=== PATIENT | female | born 1970 | race Caucasian/White ===

== ENCOUNTER 2017-10-14 21:35 | Observation (INO) | payer MEDICAID ==
[~2017-10-14] VITALS: Ht 160 cm; Wt 120.3 kg
[~2017-10-14 21:35] MED LIST: ALLO100T PO; AMIT10TA6 PO; AMOX-355 PO; ATOR10TA66 PO; BACL10TA; BENZ200C51 PO; CEFA500C8 PO; CEPH-507 PO; CEPH500C PO; CHLO25TA22 PO; COLC0.6C3 PO; COLC0.6T53 PO; DIVA125T2 PO; DIVA500T PO; HYDR-3820 PO; HYOS0.1283 SL; INDO50SU2 RC; LORA10CA PO; MORP30CA16 PO; OMEG500C PO; OMEP20CA6 PO; OMEP20TA7 PO; ONDA4TAB11 PO; ONDA4TAB8 PO; ONDA8TAB13 PO; PHEN-639 PO; POTA15TA PO; PRD20T PO; RIZA5TAB32 PO; TERA5CAP3 PO; TRIM100T PO; TRIM300C23 PO; VENL75CA PO; lidoderm 5% patch TP
[2017-10-14] MEDS ORDERED: methylPREDNISolone 125 MG (Solu-MEDROL) VIAL IV STA (22:05)
[2017-10-14] MEDS ORDERED: DEXAMETHASONE 4 MG/ML SDV (DECADRON) IH ONE (22:15)
[2017-10-14] MEDS ORDERED: RT-ALBUTEROL/IPRATROPIUM 3 ML (DUONEB) VIAL INH ONE ×2 (22:15→23:15)
[2017-10-14] MEDS ORDERED: ALBU6.7H8 INH (22:32)
[2017-10-14] MEDS ORDERED: AZIT250T12 PO (22:32)
[2017-10-14 22:44] LABS: BASOPHILS # (AUTO) 0.1 10^3/uL (0.0-0.1); BASOPHILS % (AUTO) 1 % (0-10); EOSINOPHILS % (AUTO) 6 % (0-10); HEMATOCRIT 44 % (35-52); HEMOGLOBIN 14.4 G/DL (11.5-16.0); LYMPHOCYTES # (AUTO) 5.1 X 10^3 (1.0-4.0); LYMPHOCYTES % (AUTO) 34 % (12-44); MEAN CORPUSCULAR HEMOGLOBIN 30 PG (25-34); MEAN CORPUSCULAR HGB CONC 33 G/DL (32-36); MEAN CORPUSCULAR VOLUME 90 FL (80-99); MEAN PLATELET VOLUME 9.2 FL (7.4-10.4); MONOCYTES # (AUTO) 1.2 X 10^3 (0.0-1.0); MONOCYTES % (AUTO) 8 % (0-12); NEUTROPHILS # (AUTO) 7.9 X 10^3 (1.8-7.8); NEUTROPHILS % (AUTO) 52 % (42-75); PLATELET COUNT 324 10^3/uL (130-400); RED BLOOD COUNT 4.86 10^6/uL (4.35-5.85); RED CELL DISTRIBUTION WIDTH 13.6 % (10.0-14.5); WHITE BLOOD COUNT 15.2 10^3/uL (4.3-11.0)
[2017-10-14 22:46] LABS: INR 0.9 (0.8-1.4); PROTHROMBIN TIME PATIENT 11.8 SEC (12.2-14.7)
[2017-10-14] MEDS ORDERED: RT-ALBUTEROL SULF 2.5 MG/3 ML PRE-MIX VIAL ONE (22:48)
[2017-10-14 22:49] LABS: BILIRUBIN,URINE NEGATIVE (NEGATIVE); CLARITY,URINE CLEAR; COLOR,URINE YELLOW; GLUCOSE, URINE (UA) NEGATIVE (NEGATIVE); KETONES,URINE NEGATIVE (NEGATIVE); LEUKOCYTE ESTERASE ,URINE NEGATIVE (NEGATIVE); NITRITE,URINE NEGATIVE (NEGATIVE); PH,URINE 6 (5-9); PROTEIN,URINE NEGATIVE (NEGATIVE); UROBILINOGEN,URINE NORMAL (NORMAL)
[2017-10-14 22:56] LABS: ALANINE AMINOTRANSFERASE 23 U/L (0-55); ALBUMIN 3.7 GM/DL (3.2-4.5); ALKALINE PHOSPHATASE 82 U/L (40-136); BILIRUBIN,TOTAL 0.2 MG/DL (0.1-1.0); BUN/CREATININE RATIO 18; CALCIUM 8.8 MG/DL (8.5-10.1); CARBON DIOXIDE 21 MMOL/L (21-32); CHLORIDE 107 MMOL/L (98-107); CREATININE SERUM 0.82 MG/DL (0.60-1.30); GFR ESTIMATED > 60; GLUCOSE 120 MG/DL (70-105); MAGNESIUM 1.9 MG/DL (1.8-2.4); POTASSIUM 4.3 MMOL/L (3.6-5.0); SODIUM 140 MMOL/L (135-145)
[2017-10-14 23:05] LABS: AMPHETAMINE SCREEN, URINE NEGATIVE (NEGATIVE); BARBITURATE SCREEN URINE NEGATIVE (NEGATIVE); BENZODIAZEPINES SCREEN URINE NEGATIVE (NEGATIVE); CANNABINOID SCREEN, URINE NEGATIVE (NEGATIVE); COCAINE SCREEN URINE NEGATIVE (NEGATIVE); METHADONE STAT NEGATIVE (NEGATIVE); METHAMPHETAMINE SCREEN URINE S NEGATIVE (NEGATIVE); OPIATE SCREEN URINE NEGATIVE (NEGATIVE); OXYCODONE STAT NEGATIVE (NEGATIVE); PROPOXYPHENE STAT NEGATIVE (NEGATIVE); TRICYCLIC ANTIDEPRESSANTS SCRE NEGATIVE (NEGATIVE)
[2017-10-14] MEDS ORDERED: RT-ALBUTEROL SULF 2.5 MG/3 ML PRE-MIX VIAL INH STA (23:06)
[2017-10-14 23:09] LABS: BAND NEUTROPHILS 0 %; BASOPHILS % (MANUAL) 0 %; EOSINOPHILS % (MANUAL) 9 %; LYMPHOCYTES % (MANUAL) 44 %; MONOCYTES % (MANUAL) 2 %; NEUTROPHILS % (MANUAL) 45 %; RBC MORPH NORMAL
[2017-10-14 23:12] LABS: BACTERIA,URINE NEGATIVE /HPF; RBC,URINE 0-2 /HPF; WBC,URINE RARE /HPF
[2017-10-14] MEDS ORDERED: cefTRIAXone INJECTION 1,000 MG in NS (IVPB) 50 ML IV ONE (23:30)
[2017-10-15] MEDS ORDERED: KETOROLAC 30 MG/ML VIAL IVP ONE (00:15)
[2017-10-15] MEDS ORDERED: ACETAMINOPHEN 500 MG TAB (TYLENOL) PO ONE (00:15)
[2017-10-15 01:20] VITALS: BP 134/91
[2017-10-15 01:51] VITALS: BP 134/91
[2017-10-15] MEDS ORDERED: RT-ALBUTEROL/IPRATROPIUM 3 ML (DUONEB) VIAL INH PRN (02:00)
[2017-10-15] MEDS ORDERED: RT-ALBUTEROL/IPRATROPIUM 3 ML (DUONEB) VIAL ONE (02:26)
[2017-10-15] MEDS ORDERED: RT-ALBUTEROL/IPRATROPIUM 3 ML (DUONEB) VIAL INH SCH (03:00)
[2017-10-15] MEDS ORDERED: CATHETER FLUSH 10 ML SYR IV PRN (03:15)
[2017-10-15] MEDS ORDERED: KETOROLAC 30 MG/ML VIAL IV PRN (03:15)
[2017-10-15] MEDS ORDERED: DOXYCYCLINE INJECTION 100 MG in NS (IVPB) 100 ML IV SCH (03:15)
[2017-10-15] MEDS ORDERED: ONDANSETRON 4 MG/2 ML (SDV) Z0FRAN IV PRN (03:15)
[2017-10-15] MEDS ORDERED: ACETAMINOPHEN 500 MG TAB (TYLENOL) PO PRN (03:15)
[2017-10-15 04:00] VITALS: BP 137/71
--- NOTE | 2017-10-15 04:15 | ED Respiratory ---
General Chief Complaint: Respiratory Problems Stated Complaint: PNEUMONIA Nursing Triage Note: REPORTS SOA, DX PNEUMONIA YESTERDAY AT [facility]. PT IS ON DAY 2. LAST WEEK PT TOOK STEROIDS LAST WK Source: patient History of Present Illness Date Seen by Provider: October 14, 2017 Time Seen by Provider: 21:57 Initial Comments PT ARRIVES VIA POV STATES SHE HAS BEEN SICK FOR A WEEK WITH PRODUCTIVE COUGH--YELLOW SPUTUM, CHEST CONGESTION, WHEEZING/SHORTNESS OF BREATH WAS SEEN AT [facility] LAST WEEK AND GIVEN RX FOR STEROIDS AND IT HELPED, THEN SYMPTOMS BEGAN TO RETURN PT WAS ALSO GIVEN ALBUTEROL INHALER LAST WEEK --NO SPACER. STATES IT MAKES HER GAG AND COUGH AND "GO INTO A SPASTIC FIT" --LAST USED IT 30 MINUTES PRIOR TO ARRIVAL--NO RELIEFL WAS SEEN AGAIN YESTERDAY AT [facility]. STATES SHE HAD A CXR AND WAS DIAGNOSED WITH PNEUMONIA-NO LAB DONE. WAS GIVEN RX FOR ZITHROMAX AND WAS GIVEN A NEB TREATMENT IN CLINIC YESTERDAY. HAS NOT TAKEN ANYTHING FOR COUGH NO FEVER AT ANY TIME NO CHEST PAIN PT SMOKES 1 PPD, AND HAS USED THC AND METH IN THE PAST. PT IS CURRENTLY LIVING IN THE SAFE HOUSE--STATES "EVERYBODY'S ALWAYS SICK" THERE PCP: [facility] Allergies and Home Medications Allergies Coded Allergies: Sulfa (Sulfonamide Antibiotics) (Unverified Allergy, Unknown, 01/06/15) ciprofloxacin (Unverified Allergy, Unknown, 01/06/15) phenobarbital (Unverified Allergy, Unknown, 01/06/15) Home Medications Allopurinol 100 Mg Tablet, 150 MG PO BID, (Reported) Amitriptyline HCl 10 Mg Tablet, 10 MG PO HS PRN for INSOMNIA, (Reported) Atorvastatin Calcium 10 Mg Tablet, 10 MG PO DAILY, (Reported) Colchicine 0.6 Mg Capsule, 0.6 MG PO BID, (Reported) Divalproex Sodium 500 Mg Tablet.dr, 1,000 MG PO HS, (Reported) Morphine Sulfate 30 Mg Cap.er.pel, 30 MG PO Q12H, (Reported) Zamora-3 Fatty Acids 500 Mg Capsule.dr, 500 MG PO BID, (Reported) Omeprazole 20 Mg Tablet.dr, 20 MG PO DAILY, (Reported) Ondansetron 4 Mg Tab.rapdis, 4 MG PO Q6H PRN for NAUSEA/VOMITING Prescribed by: ASHLEY TOMLINSON on 04/25/151917 Ondansetron 8 Mg Tab.rapdis, 8 MG PO Q6H PRN for NAUSEA Prescribed by: ASHLEY TOMLINSON on 10/15/152322 Phenazopyridine HCl 100 Mg Tablet, 100 MG PO TID PRN for PAIN Prescribed by: ASHLEY TOMLINSON on 01/06/152237 Phenazopyridine HCl 100 Mg Tablet, 100 MG PO Q8H PRN for PAIN Prescribed by: ASHLEY TOMLINSON on 10/15/15 232 Potassium Citrate 15 Meq Tablet.er, 15 MEQ PO BID, (Reported) Terazosin HCl 5 Mg Capsule, 5 MG PO HS, (Reported) Trimethobenzamide HCl 300 Mg Capsule, 300 MG PO Q6H PRN for NAUSEA/VOMITING, ( Reported) Trimethoprim 100 Mg Tablet, 100 MG PO DAILY, (Reported) Venlafaxine HCl 75 Mg Cap.er.24h, 75 MG PO DAILY, (Reported) Patient Home Medication List Home Medication List Reviewed: Yes Review of Systems Constitutional: no symptoms reported; No chills, No diaphoresis, No fever EENTM: nose congestion, other (NO SINUS PAIN ) Respiratory: see HPI, cough, phlegm, short of breath, wheezing Cardiovascular: No chest pain, No edema, No palpitations, No syncope, No vascular heart diseas Gastrointestinal: no symptoms reported Genitourinary: no symptoms reported : No (LMP 3 1/2 YEARS AGO--HAD D&C FOR A MISCARRIAGE, AND NEVER HAD A PERIOD AFTER THAT) Musculoskeletal: no symptoms reported Skin: no symptoms reported Psychiatric/Neurological: Headache (CHRONIC, DAILY HEADACHES--HAS NOT TAKEN ANYTHING FOR IT TODAY) Hematologic/Lymphatic: No Symptoms Reported Immunological/Allergic: no symptoms reported Past Sgmngcc-Pkszwa-Ilhwtq Hx Patient Social History Alcohol Use: Denies Use Recreational Drug Use: Yes (+ METH, THC USE--DENIES IV USE) Drug of Choice: METH, THC--DENIES IV USE Smoking Status: Current Everyday Smoker (1 PPD) Type Used: Cigarettes (1 PPD) 2nd Hand Smoke Exposure: Yes Recent Foreign Travel: No Contact w/Someone Who Travel: No Recent Infectious Disease Expo: No Recent Hopitalizations: No Immunizations Up To Date PED Vaccines UTD: No Date of Pneumonia Vaccine: May 18, 2010 Date of Influenza Vaccine: Feb 21, 2015 Seasonal Allergies Seasonal Allergies: Yes Past Medical History Surgeries: Yes (D&C X 2; KIDNEY STONE REMOVAL) Adenoidectomy, Appendectomy, Gallbladder, Renal, Tonsillectomy Respiratory: Yes Asthma, COPD Currently Using CPAP: No Currently Using BIPAP: No Cardiac: Yes High Cholesterol Neurological: Yes ("CHRONIC MIGRAINES") Headaches /Migraines : No (3 YRS SINCE LAST PERIOD AFTER D&C THEY STOPPED) Hx : 28 Hx Para: 11 Hx Total # of Abortions (Sp): 17 Reproductive Disorders: No Female Reproductive Disorders: Denies Sexually Transmitted Disease: No HIV/AIDS: No Genitourinary: Yes (MEDULLARY SPONGE KIDNEY BILATERALLY; "CHRONIC KIDNEY STONES AND KIDNEY PAIN; MICROSCOPIC HEMATURIA) Kidney Stones, UTI-Chronic Gastrointestinal: Yes Gastroesophageal Reflux Musculoskeletal: Yes (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 No Pertinent Family Hx Physical Exam Vital Signs Vital Signs - First Documented 10/14/17 21:52 Temp 97.7 Pulse 99 Resp 22 B/P (MAP) 149/95 (113) Pulse Ox 96 O2 Delivery Room Air Capillary Refill : Less Than 3 Seconds General Appearance: mild distress, obese, other (SOMEWHAT DRAMATIC, CONSTANT TIGHT COUGH, REEKS OF CIGARETTES. ) HEENT: PERRL/EOMI, other (MULTIPLE MISSING TEETH) Neck: normal inspection Respiratory: respiratory distress (MILD-MODERATE DYSPNEA), decreased breath sounds, accessory muscle use, wheezing (AUDIBLE WHEEZING--DIFFUSE/BILATERALLY ) Cardiovascular: no edema, no murmur, tachycardia (110'S) Gastrointestinal: normal bowel sounds, non tender, soft Extremities: normal inspection, no pedal edema, no calf tenderness, normal capillary refill Neurologic/Psychiatric: electronic semiconductor processor II-XII nml as tested, no motor/sensory deficits, alert, oriented x 3 Skin: normal color, warm/dry Focused Exam Lactate Level 10/14/17 22:30: Lactic Acid Level 1.51 Lactic Acid Level Laboratory Tests Test 10/14/17 22:30 Lactic Acid Level 1.51 MMOL/L (0.50-2.00) Progress/Results/Core Measures Suspected Sepsis Recent Fever Within 48 Hours: Yes Infection Criteria Present: Documented Infection New/Unexplained Altered Menta: No Sepsis Screen: No Definite Risk SIRS Temperature:97.8 Pulse: 101 Respiratory Rate: 19 Laboratory Tests 10/14/17 22:22: White Blood Count 15.2H Blood Pressure 134 /91 Mean: 105 10/14/17 22:30: Lactic Acid Level 1.51 Laboratory Tests 10/14/17 22:22: Creatinine 0.82, INR Comment 0.9, Platelet Count 324, Total Bilirubin 0.2 Results/Orders Lab Results Laboratory Tests Test 10/14/17 22:22 10/14/17 22:30 10/14/17 22:40 Range/Units White Blood Count 15.2 H 4.3-11.0 10^3/uL Red Blood Count 4.86 4.35-5.85 10^6/uL Hemoglobin 14.4 11.5-16.0 G/DL Hematocrit 44 35-52 % Mean Corpuscular Volume 90 80-99 FL Mean Corpuscular Hemoglobin 30 25-34 PG Mean Corpuscular Hemoglobin Concent 33 32-36 G/DL Red Cell Distribution Width 13.6 10.0-14.5 % Platelet Count 324 130-400 10^3/uL Mean Platelet Volume 9.2 7.4-10.4 FL Neutrophils (%) (Auto) 52 42-75 % Lymphocytes (%) (Auto) 34 12-44 % Monocytes (%) (Auto) 8 0-12 % Eosinophils (%) (Auto) 6 0-10 % Basophils (%) (Auto) 1 0-10 % Neutrophils # (Auto) 7.9 H 1.8-7.8 X 10^3 Lymphocytes # (Auto) 5.1 H 1.0-4.0 X 10^3 Monocytes # (Auto) 1.2 H 0.0-1.0 X 10^3 Eosinophils # (Auto) 1.0 H 0.0-0.3 10^3/uL Basophils # (Auto) 0.1 0.0-0.1 10^3/uL Neutrophils % (Manual) 45 % Lymphocytes % (Manual) 44 % Monocytes % (Manual) 2 % Eosinophils % (Manual) 9 % Basophils % (Manual) 0 % Band Neutrophils 0 % Blood Morphology Comment NORMAL Prothrombin Time 11.8 L 12.2-14.7 SEC INR Comment 0.9 0.8-1.4 Activated Partial Thromboplast Time 25 24-35 SEC Sodium Level 140 135-145 MMOL/L Potassium Level 4.3 3.6-5.0 MMOL/L Chloride Level 107 98-107 MMOL/L Carbon Dioxide Level 21 21-32 MMOL/L Anion Gap 12 5-14 MMOL/L Blood Urea Nitrogen 15 7-18 MG/DL Creatinine 0.82 0.60-1.30 MG/DL Estimat Glomerular Filtration Rate > 60 BUN/Creatinine Ratio 18 Glucose Level 120 H 70-105 MG/DL Calcium Level 8.8 8.5-10.1 MG/DL Magnesium Level 1.9 1.8-2.4 MG/DL Total Bilirubin 0.2 0.1-1.0 MG/DL Aspartate Amino Transf (AST/SGOT) 14 5-34 U/L Alanine Aminotransferase (ALT/SGPT) 23 0-55 U/L Alkaline Phosphatase 82 40-136 U/L Troponin I < 0.30 <0.30 NG/ML B-Type Natriuretic Peptide < 10.0 <100.0 PG/ML Total Protein 7.0 6.4-8.2 GM/DL Albumin 3.7 3.2-4.5 GM/DL Serum Test, Qualitative NEGATIVE NEGATIVE Lactic Acid Level 1.51 0.50-2.00 MMOL/L Urine Color YELLOW Urine Clarity CLEAR Urine pH 6 5-9 Urine Specific [place] 1.015 L 1.016-1.022 Urine Protein NEGATIVE NEGATIVE Urine Glucose (UA) NEGATIVE NEGATIVE Urine Ketones NEGATIVE NEGATIVE Urine Nitrite NEGATIVE NEGATIVE Urine Bilirubin NEGATIVE NEGATIVE Urine Urobilinogen NORMAL NORMAL MG/DL Urine Leukocyte Esterase NEGATIVE NEGATIVE Urine RBC (Auto) NEGATIVE NEGATIVE Urine RBC 0-2 /HPF Urine WBC RARE /HPF Urine Squamous Epithelial Cells 2-5 /HPF Urine Crystals NONE /LPF Urine Bacteria NEGATIVE /HPF Urine Casts NONE /LPF Urine Mucus NEGATIVE /LPF Urine Culture Indicated NO Urine Opiates Screen NEGATIVE NEGATIVE Urine Oxycodone Screen NEGATIVE NEGATIVE Urine Methadone Screen NEGATIVE NEGATIVE Urine Propoxyphene Screen NEGATIVE NEGATIVE Urine Barbiturates Screen NEGATIVE NEGATIVE Ur Tricyclic Antidepressants Screen NEGATIVE NEGATIVE Urine Phencyclidine Screen NEGATIVE NEGATIVE Urine Amphetamines Screen NEGATIVE NEGATIVE Urine Methamphetamines Screen NEGATIVE NEGATIVE Urine Benzodiazepines Screen NEGATIVE NEGATIVE Urine Cocaine Screen NEGATIVE NEGATIVE Urine Cannabinoids Screen NEGATIVE NEGATIVE My Orders Orders - GRIFFIN CAICEDO DO Saline Lock/Iv-Start (10/14/17 21:57) Ekg Tracing (10/14/17 21:57) Monitor-Rhythm Ecg Trace Only (10/14/17 21:57) Chest Pa/Lat (2 View) (10/14/17 21:57) BNP (10/14/17 21:57) Cbc With Automated Diff (10/14/17 21:57) Comprehensive Metabolic Panel (10/14/17 21:57) Hcg,Qualitative Serum (10/14/17:57) Magnesium (10/14/17 21:57) Protime With Inr (10/14/17 21:57) Partial Thromboplastin Time (10/14/17 21:57) Troponin I (10/14/17 21:57) Ua Culture If Indicated (10/14/17:57) Methylprednisolone Sod Succ (Solu-Medrol (10/14/17 22:05) Albuterol/Ipra Inhalation Soln (Duoneb I (10/14/17 22:15) Dexamethasone Injection (Decadron Inject (10/14/17 22:15) Rt Request For Service (10/14/17 22:05) Svn Small Volume Nebulizer (10/14/17 22:05) Drug Screen Stat (Urine) (10/14/17 22:05) Manual Differential (10/14/17 22:22) Albuterol Pre-Mix Nebs (Rt) (Proventil (10/14/17 22:48) Albuterol Pre-Mix Nebs (Rt) (Proventil (10/14/17 23:06) Albuterol/Ipra Inhalation Soln (Duoneb I (10/14/17 23:15) Svn Small Volume Nebulizer (10/14/17 23:06) Svn Small Volume Nebulizer (10/14/17 23:06) Lactic Acid Analyzer (10/14/17 23:27) Blood Culture (10/14/17 23:27) Ceftriaxone Injection (Rocephin Injectio (10/14/17 23:30) Medications Given in ED Current Medications Medications Dose Ordered Sig/Caio Route Start Time Stop Time Status Last Admin Dose Admin Albuterol/ Ipratropium 3 ml ONCE ONCE INH 10/14/17 22:15 10/14/17 22:16 DC 10/14/17 22:34 3 ML Albuterol/ Ipratropium 3 ml ONCE ONCE INH 10/14/17 23:15 10/14/17 23:16 DC 10/14/17 23:08 3 ML Ceftriaxone Sodium 1000 mg/ Sodium Chloride 50 ml @ 100 mls/hr ONCE ONCE IV 10/14/17 23:30 10/14/17 23:59 DC 10/14/17 23:59 100 MLS/HR Dexamethasone Sodium Phosphate 20 mg ONCE ONCE IH 10/14/17 22:15 10/14/17 22:16 DC 10/14/17 22:34 20 MG Vital Signs/I&O 10/14/17 10/14/17 10/14/17 21:52 22:21 23:06 Temp 97.7 Pulse 99 Resp 22 B/P (MAP) 149/95 (113) Pulse Ox 96 95 95 O2 Delivery Room Air Room Air Room Air Capillary Refill : Less Than 3 Seconds Blood Pressure Mean: 105 Progress Note : Progress Note PT GIVEN HOUR LONG NEB TREATMENT, WITH INCREASED AERATION, DECREASED WHEEZING AND DECREASED COUGH PT STATES SHE FEELS BETTER REPEATEDLY WANTING PAIN MEDICINE FOR HER "CHRONIC DAILY MIGRAINES" PT GIVEN SOLU-MEDROL, AND TORADOL WITH IMPROVEMENT IN SYMPTOMS ECG Initial ECG Impression Date: October 14, 2017 Initial ECG Impression Time: 22:13 Initial ECG Rate: 90 Initial ECG Rhythm: Normal Sinus (LAFB) Diagnostic Imaging Comments CXR--LLL INFILTRATE, PENDING RADIOLOGIST REVIEW Reviewed: Reviewed by Me Departure Communication (Admissions) [id number]--SPOKE WITH DR. HENDRIX, [facility]. ACCEPTS PT FOR ADMIT. Impression Primary Impression: Pneumonia Additional Impression: Cigarette smoker Disposition: ADMITTED INPATIENT Condition: Improved Admissions Decision to Admit Reason: Admit from ER (General) Decision to Admit/Date: October 14, 2017 Time/Decision to Admit Time: 23:45 Departure-Patient Inst. Referrals: [facility] [place] (PCP) Primary Care Physician GRIFFIN CAICEDO DO October 15, 2017 04:14
--- NOTE | 2017-10-15 05:48 | Diagnostic Imaging Report ---
INDICATION: Pneumonia PA and lateral chest obtained at 1121 PM and compared to 06/13/2015. There is a new area of mild haziness along the left heart border with partial obscuration, this may represent minimal infiltrate or atelectasis. Heart is normal in size. Mediastinal silhouette is otherwise unremarkable. The right lung is clear. There is no pneumothorax or pleural fluid. IMPRESSION: Minimal infiltrate or atelectasis along the left heart border, not seen on 06/13/2015. Otherwise unremarkable. Followup if clinically warranted. Dictated by: Dictated on workstation # [id number]
[2017-10-15] MEDS ORDERED: CATHETER FLUSH 10 ML SYR IV SCH (06:00)
[2017-10-15] MEDS ORDERED: methylPREDNISolone 125 MG (Solu-MEDROL) VIAL IV SCH (06:00)
[2017-10-15 06:20] LABS: BASOPHILS % (AUTO) 0 % (0-10); EOSINOPHILS # (AUTO) 0.1 10^3/uL (0.0-0.3); EOSINOPHILS % (AUTO) 1 % (0-10); HEMATOCRIT 43 % (35-52); HEMOGLOBIN 14.4 G/DL (11.5-16.0); LYMPHOCYTES # (AUTO) 1.4 X 10^3 (1.0-4.0); LYMPHOCYTES % (AUTO) 9 % (12-44); MEAN CORPUSCULAR HEMOGLOBIN 31 PG (25-34); MEAN CORPUSCULAR HGB CONC 34 G/DL (32-36); MEAN CORPUSCULAR VOLUME 91 FL (80-99); MEAN PLATELET VOLUME 9.7 FL (7.4-10.4); MONOCYTES # (AUTO) 0.2 X 10^3 (0.0-1.0); MONOCYTES % (AUTO) 1 % (0-12); NEUTROPHILS # (AUTO) 14.6 X 10^3 (1.8-7.8); NEUTROPHILS % (AUTO) 89 % (42-75); PLATELET COUNT 288 10^3/uL (130-400); RED BLOOD COUNT 4.72 10^6/uL (4.35-5.85); RED CELL DISTRIBUTION WIDTH 13.5 % (10.0-14.5); WHITE BLOOD COUNT 16.4 10^3/uL (4.3-11.0)
[2017-10-15 06:50] LABS: BILIRUBIN,TOTAL 0.2 MG/DL (0.1-1.0); CALCIUM 9.3 MG/DL (8.5-10.1); CREATININE SERUM 1.08 MG/DL (0.60-1.30); TOTAL PROTEIN 7.3 GM/DL (6.4-8.2)
[2017-10-15] MEDS ORDERED: BENZONATATE 100 MG (TESSALON) CAPSULE PO PRN (07:00)
--- NOTE | 2017-10-15 10:48 | Short Stay Summary-Hospitalist ---
History of Present Illness HPI/Chief Complaint CC: Pneumonia with hypoxia HPI: This is a 47-year-old white female clinic patient [facility] who was just seen by Arthur Reynolds placed on Zithromax for bronchitis when she declined and status the next day was found to have hypoxia in the ER and left lower lobe pneumonia. At this current time she is responded to IV steroids denies any significant cough and overall feels much better. Smoking cessation discussed. She has not been able to afford all of her medications so on the long list that she has on her med list there are only a couple that she is actually been taking. I did secure close follow-up with Arthur Reynolds [facility] next week and will stop the Zithromax and maintain Cefdinir for pneumonia treatment. Source: patient, RN/MD Exam Limitations: no limitations Date Seen 10/15/17 Time Seen by Provider: 10:00 Attending Physician Wendi Borden DO [facility] Referring Physician Date of Admission October 15, 2017 at 00:00 Home Medications & Allergies Home Medications Reviewed patient Home Medication Reconciliation performed by pharmacy medication reconciliations screen making technician and/or nursing. Patients Allergies have been reviewed. Allergies Allergies Coded Allergies Sulfa (Sulfonamide Antibiotics) (Unverified Allergy, Unknown, 01/06/15) ciprofloxacin (Unverified Allergy, Unknown, 01/06/15) phenobarbital (Unverified Allergy, Unknown, 01/06/15) Past Mvhxulo-Rhffsq-Pqmihy Hx Past Med/Social Hx: Reviewed Nursing Past Med/Soc Hx, Reviewed and Corrections made Patient Social History Marrital Status: cohabiting Employed/Student: unemployed Alcohol Use: Denies Use Recreational Drug Use: Yes (+ METH, THC USE--DENIES IV USE) Drug of Choice: METH, THC--DENIES IV USE Smoking Status: Current Everyday Smoker (1 PPD) Type Used: Cigarettes (1 PPD) 2nd Hand Smoke Exposure: Yes Physical Abuse Screen: No Sexual Abuse: No Recent Foreign Travel: No Contact w/other who traveled: No Recent Hopitalizations: No Recent Infectious Disease Expo: No Immunizations Up To Date Pediatric: No Date of Pneumonia Vaccine: May 18, 2010 Date of Influenza Vaccine: Feb 21, 2015 Seasonal Allergies Seasonal Allergies: Yes Past Medical History Surgeries: Adenoidectomy, Appendectomy, Gallbladder, Renal, Tonsillectomy Respiratory: COPD Currently Using CPAP: No Currently Using BIPAP: No Cardiac: High Cholesterol Neurological: Headaches /Migraines : No (3 YRS SINCE LAST PERIOD AFTER D&C THEY STOPPED) Hx : 28 Hx Para: 11 Hx Total # of Abortions(Spont): 17 Reproductive: No Sexually Transmitted Disease: No HIV/AIDS: No Female Reproductive Disorders: Denies Genitourinary: Kidney Stones, UTI-Chronic Gastrointestinal: Gastroesophageal Reflux Musculoskeletal: Chronic Back Pain, Gout Psychosocial: Anxiety, Depression History of Blood Disorders: No Adverse Reaction to Blood [place]: No Family History Patient reports no known family medical history. No Pertinent Family Hx Review of Systems Constitutional: see HPI, dizziness, fever EENTM: no symptoms reported Respiratory: dyspnea on exertion, short of breath, wheezing Cardiovascular: no symptoms reported Gastrointestinal: no symptoms reported Genitourinary: no symptoms reported Musculoskeletal: no symptoms reported Skin: no symptoms reported Psychiatric/Neurological: No Symptoms Reported All Other Systems Reviewed Negative Unless Noted: Yes Physical Exam Physical Exam Vital Signs Vital Signs - First Documented 10/14/17 21:52 Temp 97.7 Pulse 99 Resp 22 B/P (MAP) 149/95 (113) Pulse Ox 96 O2 Delivery Room Air Capillary Refill : Less Than 3 Seconds General Appearance: No Apparent Distress, WD/WN, Chronically ill, Obese Eyes: Bilateral Eye Normal Inspection, Bilateral Eye PERRL HEENT: PERRL/EOMI, Normal ENT Inspection, Pharynx Normal Neck: Full Range of Motion, Normal Inspection, Non Tender, Supple, Carotid Bruit Respiratory: Chest Non Tender, No Accessory Muscle Use, No Respiratory Distress , Wheezing (subtle wheeze noted) Cardiovascular: Regular Rate, Rhythm, No Edema, No Gallop, No JVD, No Murmur, Normal Peripheral Pulses Gastrointestinal: Normal Bowel Sounds, No Organomegaly, No Pulsatile Mass, Non Tender, Soft Back: Normal Inspection, No CVA Tenderness, No Vertebral Tenderness Extremity: Normal Capillary Refill, Normal Inspection, Normal Range of Motion, Non Tender, No Calf Tenderness, No Pedal Edema Neurologic/Psychiatric: Alert, Oriented x3, No Motor/Sensory Deficits, Normal Mood/Affect Skin: Normal Color, Warm/Dry Lymphatic: No Adenopathy Results Results/Procedures Labs Laboratory Tests 10/14/17 22:22 10/15/17 05:25 10/15/17 05:35 Patient resulted labs reviewed. Short Stay Diagnosis Discharge Diagnosis-Short Stay Admission Diagnosis Assessment: Left lower lobe pneumonia Hypoxia Smoker COPD Plan: Discharge home Close follow-up with [facility] Discontinue Zithromax and begin cefdinir Final Discharge Diagnosis Assessment: Left lower lobe pneumonia Hypoxia Smoker COPD Plan: Discharge home Close follow-up with [facility] Discontinue Zithromax and begin cefdinir Conclusion Plan Plan: Discharge home Close follow-up with [facility] Discontinue Zithromax and begin cefdinir Diagnosis/Problems Diagnosis/Problems (1) Pneumonia Status: Acute Qualifiers: Qualified Codes: J18.1 - Lobar pneumonia, unspecified organism (2) Cigarette smoker Status: Chronic (3) Asthma exacerbation Status: Acute Qualifiers: Qualified Codes: J45.21 - Mild intermittent asthma with (acute) exacerbation Clinical Quality Measures DVT/VTE Risk/Contraindication: Risk Factor Score Per Nursin RFS Level Per Nursing on Admit: 4+=Very High WENDI BORDEN DO October 15, 2017 10:48
[2017-10-15] MEDS ORDERED: BENZ200C51 PO (10:50)
[2017-10-15] MEDS ORDERED: PRED10TA22 PO (10:54)
[2017-10-15] MEDS ORDERED: CEFD300C3 PO (10:54)
[2017-10-15] MEDS ORDERED: RT-ALBUTEROL SULF 2.5 MG/3 ML PRE-MIX VIAL INH PRN (11:00)
[2017-10-15 11:35] VITALS: BP 137/71
[2017-10-15] MEDS ORDERED: DOXYCYCLINE 100 MG (VIBRAMYCIN) TABLET PO SCH (17:00)
[2017-10-15] MEDS ORDERED: cefTRIAXone 1 GM/NS 50 ML IVPB IV SCH ×2 (21:00)
--- OUTSIDE RECORDS SUMMARY | 2017-10-16 10:26 | XMS REPORT ---
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 Problem Primary insomnia F51.01 Active Problem Generalized anxiety disorder F41.1 Active Problem GERD (gastroesophageal reflux disease) K21.9 Active Problem Major depressive disorder, recurrent episode, severe F33.2 Active Problem Other hyperlipidemia E78.4 Active Problem 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 [address]-88 10-325 MG Orally every 6 hrs. MUST LAST 28 DAYS. Apr 26, 2015 1 tablet as needed for pain Results No Known Results Summary Purpose eClinicalWorks Submission
--- OUTSIDE RECORDS SUMMARY | 2017-10-16 10:26 | XMS REPORT ---
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 Assessment Seasonal allergies J30.2 Active Assessment Depression F32.9 Active Problem 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 Problem 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 Problem Other hyperlipidemia E78.4 Active Problem Primary insomnia F51.01 Active Assessment 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 Problem Depression F32.9 Active Problem Seasonal allergies J30.2 Active Medications Medication Code System Code Instructions Start Date End Date Status Dosage Loratadine [facility] [address]-31 10 MG Orally Once a day 1 tablet Rizatriptan Benzoate [facility] [address]-51 5 MG Orally Once a day 1 tablet as needed one time Chlorthalidone [facility] [address]-42 25 MG Orally Once a day 1 tablet in the morning Trimethoprim [facility] [address]-61 100 MG Orally Once a day 1 tablet Venlafaxine HCl ER [facility] [address]-55 150 MG Orally Once a day 1 capsule with food Terazosin HCl [facility] [address]-27 1 MG Orally Once a day 1 capsule Omeprazole [facility] [address]-52 20 MG Orally Once a day 1 capsule Zofran [facility] [address]-12 4 MG Orally 3 times a day as needed for nausea Feb 05, 2015 1 tablet Hydrocodone-Acetaminophen [facility] [address]-32 10-325 MG Orally every 6 hrs Jan 29, 2015 Feb 28, 2015 1 tablet as needed Trimethobenzamide HCl [facility] [address]-94 300 MG Orally Three times a day 1 capsule as needed Divalproex Sodium [facility] [address]-21 500 MG Orally Once a day 1 tablet Urocit-K 15 [facility] [address]-54 15 MEQ (1620 MG) Orally 2 times a day 1 tablet with meals Colchicine [facility] [address]-32 0.6 MG Orally Once a day 1 tablet Atorvastatin Calcium [facility] [address]-68 40 MG Orally Once a day 1 tablet [place] Concentrate [facility] [address]-46 Orally not defined Amitriptyline HCl [facility] [address]-39 10 MG Orally Once a day 1 tablet Procedures Procedure Coding System Code Date Office Visit, Est Pt., Level 3 CPT-4 55853 Feb 27, 2015 Vital Signs Date/Time: Feb 27, 2015 Temperature 98.5 F Weight 246.9 lbs Height 64 in BMI 42.38 Index Blood Pressure Diastolic 80 mmHg Blood Pressure Systolic 124 mmHg Cardiac Monitoring Heart Rate 100 bpm Results No Known Results Summary Purpose eClinicalWorks Submission
--- OUTSIDE RECORDS SUMMARY | 2017-10-16 10:26 | XMS REPORT ---
Author Author MABEL BELTRE [facility] eClinicalWorks Address Unknown Phone Unavailable Care Team Providers Care Highway Landscape Architect Name Role Phone MABEL BELTRE CP Unavailable Allergies No Known Allergies Problems Problem [...] Start Date End Date Status Dosage Hydrocodone-Acetaminophen [facility] [address]-29 10-325 MG Orally every 6 hrs. MUST LAST 28 DAYS. Apr 26, 2015 May 24, 2015 1 tablet as needed Results No Known Results Summary Purpose eClinicalWorks Submission
--- OUTSIDE RECORDS SUMMARY | 2017-10-16 10:27 | XMS REPORT ---
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 Problem 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 Problem Other hyperlipidemia E78.4 Active Problem Primary insomnia F51.01 Active Assessment Pain in right toe(s) M79.674 Active Problem Depression F32.9 Active Problem Seasonal allergies J30.2 Active Medications Medication Code System Code Instructions Start Date End Date Status Dosage Medrol (Xavier) [facility] [address]-52 4 MG Orally Once a day Feb 24, 2015 as directed Venlafaxine HCl ER [facility] [address]-08 150 MG Orally Once a day 1 capsule with food Trimethobenzamide HCl [facility] [address]-44 300 MG Orally Three times a day 1 capsule as needed Zofran [facility] [address]-10 4 MG Orally 3 times a day as needed for nausea Feb 05, 2015 1 tablet Rizatriptan Benzoate [facility] [address]-37 5 MG Orally Once a day 1 tablet as needed one time Trimethoprim [facility] [address]-62 100 MG Orally Once a day 1 tablet Loratadine [facility] [address]-19 10 MG Orally Once a day 1 tablet Chlorthalidone [facility] [address]-48 25 MG Orally Once a day 1 tablet in the morning Colchicine [facility] [address]-44 0.6 MG Orally Once a day 1 tablet Terazosin HCl [facility] [address]-23 1 MG Orally Once a day 1 capsule Sklice [facility] [address]-34 0.5 % Externally Feb 12, 2015 as directed Urocit-K 15 [facility] [address]-63 15 MEQ (1620 MG) Orally 2 times a day 1 tablet with meals Divalproex Sodium [facility] [address]-78 500 MG Orally Once a day 1 tablet Omeprazole [facility] [address]-12 20 MG Orally Once a day 1 capsule Hydrocodone-Acetaminophen [facility] [address]-44 10-325 MG Orally every 6 hrs Jan 29, 2015 Feb 28, 2015 1 tablet as needed Amitriptyline HCl [facility] [address]-09 10 MG Orally Once a day 1 tablet Atorvastatin Calcium [facility] [address]-94 40 MG Orally Once a day 1 tablet Procedures Procedure Coding System Code Date Office Visit, Est Pt., Level 3 CPT-4 68875 Feb 24, 2015 Vital Signs Date/Time: Feb 24, 2015 Temperature 98.6 F Weight 243.3 lbs Height 64 in BMI 41.76 Index Blood Pressure Diastolic 78 mmHg Blood Pressure Systolic 126 mmHg Cardiac Monitoring Heart Rate 96 bpm Results No Known Results Summary Purpose eClinicalWorks Submission
--- OUTSIDE RECORDS SUMMARY | 2017-10-16 10:27 | XMS REPORT ---
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 Problem Nephrolithiasis N20.0 Active Problem Major depressive disorder, recurrent episode, severe F33.2 Active Problem Hypertension I10 Active Problem Encounter for chronic pain management G89.29 Active Problem Migraine headache G43.909 Active Problem Generalized anxiety disorder F41.1 Active Problem GERD (gastroesophageal reflux disease) K21.9 Active Assessment Upper respiratory tract infection, unspecified type J06.9 Active Problem Primary insomnia F51.01 Active Problem Seasonal allergies J30.2 Active Problem Depression F32.9 Active Medications Medication Code System Code Instructions Start Date End Date Status Dosage Xanax [facility] [address]-60 1 MG Orally up to twice a day prn anxiety May 17, 2015 1 tablet Divalproex Sodium [facility] 15933164976 500 MG Orally Twice a day 1 tablet Terazosin HCl [facility] 69632072867 5 MG Orally Once a day 1 capsule Urocit-K 15 [facility] 15266527195 15 MEQ (1620 MG) Orally 2 times a day 1 tablet with meals Maxalt [facility] 61403578859 10 MG Orally take at onset of headache 1 tablet as needed one time Azithromycin [facility] [address]-23 250 MG Orally Once a day Jan 08, 2016 Jan 13, 2016 2 tablets on the first day, then 1 tablet daily for 4 days Morphine Sulfate ER [facility] [address]-34 30 MG Orally every 12 hrs September 07, 2015 1 tablet Colcrys [facility] 57984154058 0.6 MG TAKE ONE TABLET BY MOUTH TWICE DAILY Allopurinol [facility] 21087072657 300 MG Orally 2 times a day 1 tablet Omeprazole [facility] [address]-79 20 MG Orally Once a day 2 capsules Venlafaxine HCl ER [facility] [address]-51 225 MG Orally Once a day Mar 27, 2015 1 tablet with food Albuterol Sulfate HFA [facility] [address]-66 108 (90 Base) MCG/ACT Inhalation every 4 hrs Jan 08, 2016 2 puffs as needed Zofran ODT [facility] [address]-08 4 MG Orally every 8 hrs prn October 16, 2015 1 tablet on the tongue and allow to dissolve Tessalon Perles [facility] [address]-29 100 MG Orally three times daily Jan 08, 2016 Jan 15, 2016 one tablet Procedures Procedure Coding System Code Date Office Visit, Est Pt., Level 3 CPT-4 91268 Jan 08, 2016 Vital Signs Date/Time: Jan 08, 2016 Cardiac Monitoring Heart Rate 98 bpm Weight 231.2 lbs Height 64 in BMI 39.68 Index Blood Pressure Diastolic 84 mmHg Blood Pressure Systolic 128 mmHg Results No Known Results Summary Purpose eClinicalWorks Submission
--- OUTSIDE RECORDS SUMMARY | 2017-10-16 10:27 | XMS REPORT ---
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 Problem Seasonal allergies J30.2 Active Problem Primary insomnia F51.01 Active Problem Encounter for chronic pain management G89.29 Active Problem Migraine headache G43.909 Active Problem GERD (gastroesophageal reflux disease) K21.9 Active Problem 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 Problem Depression F32.9 Active Problem Other hyperlipidemia E78.4 Active Problem 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 Assessment Encounter for chronic pain management G89.29 Active Assessment GERD (gastroesophageal reflux disease) K21.9 Active Assessment 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 Assessment Migraine headache G43.909 Active Assessment Seasonal allergies J30.2 Active Medications Medication Code System Code Instructions Start Date End Date Status Dosage [place] Concentrate [facility] [address]-75 Orally not defined Pantoprazole Sodium [facility] [address]-35 40 MG Orally Once a day Mar 15, 2015 1 Zofran ODT [facility] [address]-23 4 MG Orally every 8 hrs Mar 15, 2015 1 tablet on the tongue and allow to dissolve Divalproex Sodium [facility] [address]-18 500 MG Orally Once a day 1 tablet Loratadine [facility] [address]-97 10 MG Orally Once a day Jul 13, 2015 1 tablet Maxalt [facility] [address]-52 10 MG Orally take at onset of headache Mar 15, 2015 1 tablet as needed one time Chlorthalidone [facility] [address]-87 25 MG Orally Once a day 1 tablet in the morning MS Contin [facility] [address]-35 15 MG Orally every 12 hrs Mar 15, 2015Mar 1 tablet Venlafaxine HCl ER [facility] [address]-29 150 MG Orally Once a day 1 capsule with food Urocit-K 15 [facility] [address]-52 15 MEQ (1620 MG) Orally 2 times a day 1 tablet with meals Terazosin HCl [facility] [address]-58 1 MG Orally Once a day 1 capsule Trimethobenzamide HCl [facility] [address]-02 300 MG Orally Three times a day 1 capsule as needed Amitriptyline HCl [facility] [address]-26 10 MG Orally Once a day 1 tablet Atorvastatin Calcium [facility] [address]-95 40 MG Orally Once a day 1 tablet Colchicine [facility] [address]-07 0.6 MG Orally 2 times a day Jul 13, 2015 1 tablet Trimethoprim [facility] [address]-86 100 MG Orally Once a day 1 tablet Procedures Procedure Coding System Code Date URINALYSIS, AUTO, W/O SCOPE CPT-4 98486 Mar 15, 2015 Office Visit, Est Pt., Level 3 CPT-4 22208 Mar 15, 2015 X-RAY EXAM OF ABDOMEN CPT-4 10816 Mar 15, 2015 Vital Signs Date/Time: Mar 15, 2015 Temperature 97.8 F Weight 251.7 lbs Height 64 in BMI 43.20 Index Blood Pressure Diastolic 82 mmHg Blood Pressure Systolic 124 mmHg Cardiac Monitoring Heart Rate 88 bpm Results Name Result Date Reference Range Unit Abnormality Flag UA W/CULTURE IF INDICATED (IN HOUSE) Summary Purpose eClinicalWorks Submission
--- OUTSIDE RECORDS SUMMARY | 2017-10-16 10:27 | XMS REPORT ---
Author Author CAL HYATT [facility] eClinicalWorks Address Unknown Phone Unavailable Care Team Providers Care Netbackup Admin Name Role Phone CAL HYATT CP Unavailable Allergies, Adverse Reactions, Alerts Substance [...] GERD (gastroesophageal reflux disease) K21.9 Active Assessment Depression F32.9 Active Problem Primary insomnia F51.01 Active Assessment Generalized anxiety disorder F41.1 Active Problem Seasonal allergies J30.2 Active Assessment Major depressive disorder, recurrent episode, severe F33.2 Active Problem Depression F32.9 Active Medications No Known Medications Procedures Procedure Coding System Code Date Psychotherapy, patient &/family, 30 minutes, established patient CPT-4 65426 December 05, 2015 Results No Known Results Summary Purpose eClinicalWorks Submission
--- OUTSIDE RECORDS SUMMARY | 2017-10-16 10:27 | XMS REPORT ---
Author Author GEREMIAS VIDAL [facility] eClinicalWorks Address Unknown Phone Unavailable Care Team Providers Care Volleyball Assistant Coach Name Role Phone GEREMIAS VIDAL CP Unavailable Allergies No Known Allergies Problems [...] GERD (gastroesophageal reflux disease) K21.9 Active Problem Primary insomnia F51.01 Active Problem Seasonal allergies J30.2 Active Problem Depression F32.9 Active Medications Medication Code System Code Instructions Start Date End Date Status Dosage Xanax [facility] [address]-24 1 MG Orally up to twice a day prn anxiety May 17, 2015 1 tablet Results No Known Results Summary Purpose eClinicalWorks Submission
--- OUTSIDE RECORDS SUMMARY | 2017-10-16 10:27 | XMS REPORT ---
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
--- OUTSIDE RECORDS SUMMARY | 2017-10-16 10:27 | XMS REPORT ---
Author DIPAK Kirkpatrick [facility] eClinicalWorks Address Unknown Phone Unavailable Care Team Providers Care Agricultural Equipment Design Engineer Name Role Phone DIPAK LOYA CP Unavailable Allergies, Adverse Reactions, Alerts Substance [...] GERD (gastroesophageal reflux disease) K21.9 Active Assessment Onychomycosis B35.1 Active Problem Primary insomnia F51.01 Active Problem Seasonal allergies J30.2 Active Assessment Nail, ingrown L60.0 Active Problem Depression F32.9 Active Medications Medication Code System Code Instructions Start Date End Date Status Dosage Allopurinol [facility] [address]-22 300 MG Orally 2 times a day Mar 30, 2015 1 tablet Maxalt [facility] [address]-82 10 MG Orally take at onset of headache 1 tablet as needed one time Terazosin HCl [facility] 27418504225 5 MG Orally Once a day 1 capsule Trimethoprim [facility] 24849857368 100 MG TAKE ONE TABLET BY MOUTH ONCE DAILY Venlafaxine HCl ER [facility] [address]-69 225 MG Orally Once a day Mar 27, 2015 1 tablet with food Ventolin HFA [facility] [address]-45 108 (90 Base) MCG/ACT Inhalation every 4 hrs 2 puffs as needed Blood Press Monitor/M-L Cuff [facility] [address]155 1 Apr 18, 2015 as directed Urocit-K 15 [facility] 24327465402 15 MEQ (1620 MG) Orally 2 times a day 1 tablet with meals Divalproex Sodium [facility] 10604109848 500 MG Orally Twice a day 1 tablet Trimethobenzamide HCl [facility] [address]-08 300 MG Orally Three times a day 1 capsule as needed Atorvastatin Calcium [facility] [address]-33 40 MG Orally Once a day 1 tablet Albuterol Sulfate [facility] [address]-26 (2.5 MG/3ML) 0.083% Inhalation Three times a day 3 ml Pantoprazole Sodium [facility] [address]-64 40 MG Orally Once a day Mar 15, 2015 1 Xanax [facility] [address]-89 1 MG Orally Once a day May 17, 2015 1 tablet Morphine Sulfate [facility] [address]-04 30 MG Orally 2 times a day Jun 15, 2015 1 tablet as needed Incontinence Brief Large [facility] [address]-66 1 Apr 18, 2015 as directed Amitriptyline HCl [facility] [address]-85 10 MG Orally Once a day 1 tablet PredniSONE [facility] [address]-86 20 mg Orally Once a day September 04, 2015 September 09, 2015 2 tablets Zofran [facility] [address]-42 4 MG Orally 3 times a day August 08, 2015 1 tablet Uloric [facility] [address]-70 40 MG Orally 3 times a day Mar 27, 2015 1 tablet Procedures Procedure Coding System Code Date REMOVAL OF NAIL BED CPT-4 41565 September 04, 2015 Vital Signs Date/Time: September 04, 2015 Temperature 97.4 F Weight 238.5 lbs Height 64 in BMI 40.93 Index Blood Pressure Diastolic 80 mmHg Blood Pressure Systolic 130 mmHg Cardiac Monitoring Heart Rate 90 bpm Results Name Result Date Reference Range Unit Abnormality Flag NAIL REMOVAL PERMANENT (PARTIAL OR COMPLETE) Summary Purpose eClinicalWorks Submission
--- OUTSIDE RECORDS SUMMARY | 2017-10-16 10:27 | XMS REPORT ---
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
--- OUTSIDE RECORDS SUMMARY | 2017-10-16 10:28 | XMS REPORT ---
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
--- OUTSIDE RECORDS SUMMARY | 2017-10-16 10:28 | XMS REPORT ---
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 636330887 Problem Migraine headache G43.909 Active 64933886 Problem Other hyperlipidemia E78.4 Active 48619304 Problem Primary insomnia F51.01 Active 907216856 Problem Seasonal allergies J30.2 Active 071658668 Problem Depression F32.9 Active 99336842 Problem 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 964440645 Problem Hypertension I10 Active 77424267 Problem Nephrolithiasis N20.0 Active 88423365 Problem GERD (gastroesophageal reflux disease) K21.9 Active 814146253 Problem Encounter for chronic pain management G89.29 Active 269374485 Problem Major depressive disorder, recurrent episode, severe F33.2 Active 208085145547 Problem Generalized anxiety disorder F41.1 Active 97560667 ALLERGIES Unknown Allergies SOCIAL HISTORY No smoking Hx information available PLAN OF CARE VITAL SIGNS MEDICATIONS Medication Instructions Dosage Frequency Start Date End Date Duration Status Morphine Sulfate ER 30 MG Orally every 12 hrs 1 tablet 12h Aug, Active RESULTS No Results PROCEDURES No Known procedures IMMUNIZATIONS No Known Immunizations
--- OUTSIDE RECORDS SUMMARY | 2017-10-16 10:28 | XMS REPORT ---
Author Author DIPAK LOYA [facility] eClinicalWorks Address Unknown Phone Unavailable Care Team Providers Care Assembly Cleaner Name Role Phone DIPAK LOYA CP Unavailable Allergies No Known Allergies Problems [...] GERD (gastroesophageal reflux disease) K21.9 Active Assessment Acquired hypothyroidism E03.9 Active Problem Primary insomnia F51.01 Active Problem Seasonal allergies J30.2 Active Problem Depression F32.9 Active Medications No Known Medications Procedures Procedure Coding System Code Date VENIPUNCT, ROUTINE* CPT-4 28561 Dec 24, 2015 LAB NOT BILLED BY [facility] CPT-4 NOBLL Dec 24, 2015 Results No Known Results Summary Purpose eClinicalWorks Submission
--- OUTSIDE RECORDS SUMMARY | 2017-10-16 10:28 | XMS REPORT ---
Author Author CRISTIAN LANDAVERDE [facility] eClinicalWorks Address Unknown Phone Unavailable Care Team Providers Care Powder Loader Name Role Phone CRISTIAN LANDAVERDE CP Unavailable [...]
--- OUTSIDE RECORDS SUMMARY | 2017-10-16 10:28 | XMS REPORT ---
Author Author DIPAK LOYA Organization eClinicalWorks Address Unknown Phone Unavailable Care Team Providers Care Premix Operator Concentrate Name Role Phone DIPAK LOYA CP Unavailable [...] GERD (gastroesophageal reflux disease) K21.9 Active Assessment Other chronic pain G89.29 Active Problem Primary insomnia F51.01 Active Problem Seasonal allergies J30.2 Active Assessment Anxiety F41.9 Active Problem Depression F32.9 Active Medications Medication Code System Code Instructions Start Date End Date Status Dosage BusPIRone HCl [facility] [address]-34 10 mg Orally Twice a day Dec 21, 2015 1 tablet Procedures Procedure Coding System Code Date Office Visit, Est Pt., Level 3 CPT-4 13954 Dec 21, 2015 Vital Signs Date/Time: Dec 21, 2015 Cardiac Monitoring Heart Rate 92 bpm Weight 221.8 lbs Height 64 in BMI 38.07 Index Blood Pressure Diastolic 84 mmHg Blood Pressure Systolic 138 mmHg Results No Known Results Summary Purpose eClinicalWorks Submission
--- OUTSIDE RECORDS SUMMARY | 2017-10-16 10:28 | XMS REPORT ---
Author Author DIPAK LOYA Organization eClinicalWorks Address Unknown Phone Unavailable Care Team Providers Care Regulator Assembler Name Role Phone DIPAK LOYA CP Unavailable [...] Instructions Start Date End Date Status Dosage Morphine Sulfate ER [facility] [address]-61 30 MG Orally every 12 hrs September 07, 2015 1 tablet Results No Known Results Summary Purpose eClinicalWorks Submission
--- OUTSIDE RECORDS SUMMARY | 2017-10-16 10:28 | XMS REPORT ---
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
--- OUTSIDE RECORDS SUMMARY | 2017-10-16 10:28 | XMS REPORT ---
Author Author DIPAK LOYA Organization eClinicalWorks Address Unknown Phone Unavailable Care Team Providers Care Chief Of Anesthesiology Name Role Phone DIPAK LOYA CP Unavailable [...] GERD (gastroesophageal reflux disease) K21.9 Active Assessment Gout M10.9 Active Problem Primary insomnia F51.01 Active Problem Seasonal allergies J30.2 Active Problem Depression F32.9 Active Medications Medication Code System Code Instructions Start Date End Date Status Dosage Xanax [facility] [address]-68 1 MG Orally Once a day May 17, 2015 1 tablet Results No Known Results Summary Purpose eClinicalWorks Submission
--- OUTSIDE RECORDS SUMMARY | 2017-10-16 10:28 | XMS REPORT ---
Author Author DIPAK LOYA Organization [employer] Address Unknown Phone Unavailable Care Team Providers Care Peripheral Vascular Tech Name Role Phone DIPAK LOYA CP Unavailable [...] Depression F32.9 Active Medications No Known Medications Results No Known Results Summary Purpose eClinicalWorks Submission
--- OUTSIDE RECORDS SUMMARY | 2017-10-16 10:28 | XMS REPORT ---
Author Author YOUNG GEREMIAS Organization [facility] Address [address] [place] [address] Care Team Providers Care Mid Level Net Developer Name Role Phone GEREMIAS VIDAL Unavailable PROBLEMS Type Condition ICD9-CM Code PST80-UF Code Onset Dates Condition Status SNOMED Code Problem Other hyperlipidemia E78.4 Active 99490347 Problem Encounter for chronic pain management G89.29 Active 105463609 Problem Migraine headache G43.909 Active 37011934 Problem Chronic gout of multiple sites, unspecified cause M1A.09X0 Active 19689636 Problem Hypertension I10 Active 01942979 Problem Generalized anxiety disorder F41.1 Active 79667943 Problem GERD (gastroesophageal reflux disease) K21.9 Active 701300821 Problem Nephrolithiasis N20.0 Active 68333135 Problem Major depressive disorder, recurrent episode, severe F33.2 Active 647536225164 Problem Seasonal allergies J30.2 Active 693085439 Problem Depression F32.9 Active 08131659 Assessment Bipolar I disorder with depression F31.9 Mar, Active 22207551 Problem 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 422599495 Problem Primary insomnia F51.01 Active 752844486 Problem 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 406630991 ALLERGIES Unknown Allergies SOCIAL HISTORY No smoking Hx information available PLAN OF CARE VITAL SIGNS Height 64 in 2016-04-15 Weight 217.7 lbs 2016-04-15 Heart Rate 110 bpm 2016-04-15 Respiratory Rate 20 2016-04-15 BMI 37.36 kg/m2 2016-04-15 Blood pressure systolic 124 mmHg 2016-04-15 Blood pressure diastolic 82 mmHg 2016-04-15 MEDICATIONS Medication Instructions Dosage Frequency Start Date End Date Duration Status Allopurinol 300 MG Orally 2 times a day 1 tablet 12h 30 Active Colcrys 0.6 MG TAKE ONE TABLET BY MOUTH TWICE DAILY 30 Active Maxalt 10 MG Orally take at onset of headache 1 tablet as needed one time 9 Active Terazosin HCl 5 MG Orally Once a day 1 capsule 24h 30 Active Zofran ODT 4 MG Orally every 8 hrs prn 1 tablet on the tongue and allow to dissolve September, 03 days Active Morphine Sulfate ER 30 MG Orally every 12 hrs 1 tablet 12h Aug, Active Divalproex Sodium 500 MG Orally Twice a day 1 tablet 12h Active Atorvastatin Calcium 40 MG Orally Once a day 1 tablet 24h 30 Active Omeprazole 20 MG Orally Once a day 2 capsules 24h Active Albuterol Sulfate HFA 108 (90 Base) MCG/ACT Inhalation every 4 hrs 2 puffs as needed 4h Dec, 7 days Active Venlafaxine HCl ER 225 MG Orally Once a day 1 tablet with food 24h Mar, Active Urocit-K 15 15 MEQ (1620 MG) Orally 2 times a day 1 tablet with meals 12h 30 Active Trimethoprim 100 MG TAKE ONE TABLET BY MOUTH ONCE DAILY 30 Active Xanax 1 MG Orally up to twice a day prn anxiety 1 tablet Apr, Active RESULTS No Results PROCEDURES Procedure Date Ordered Related Diagnosis Body Site Office Visit, Est Pt., Level 3 Apr 15, 2016 IMMUNIZATIONS No Known Immunizations
--- OUTSIDE RECORDS SUMMARY | 2017-10-16 10:28 | XMS REPORT ---
Author Author DIPAK LOYA [facility] Address [address] [place] [address] Care Team Providers Care Market Research Analyst Name Role Phone SHALINI DIPAK Unavailable PROBLEMS Type Condition ICD9-CM Code PXO21-PB Code Onset Dates Condition Status SNOMED Code Problem Other hyperlipidemia E78.4 Active 71043937 Problem Encounter for chronic pain management G89.29 Active 832025517 Problem Migraine headache G43.909 Active 13859800 Problem Chronic gout of multiple sites, unspecified cause M1A.09X0 Active 38991829 Problem Hypertension I10 Active 44956037 Problem Generalized anxiety disorder F41.1 Active 20429547 Problem GERD (gastroesophageal reflux disease) K21.9 Active 110763258 Problem Nephrolithiasis N20.0 Active 92827230 Problem Major depressive disorder, recurrent episode, severe F33.2 Active 767964205347 Problem Seasonal allergies J30.2 Active 246157238 Problem Depression F32.9 Active 71272646 Assessment Other mcfp (current) drug therapy Z79.899 30 Mar, 2016 Active 510596519 Problem 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
--- OUTSIDE RECORDS SUMMARY | 2017-10-16 10:28 | XMS REPORT ---
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
--- OUTSIDE RECORDS SUMMARY | 2017-10-16 10:28 | XMS REPORT ---
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 Problem Depression F32.9 Active Problem Generalized anxiety disorder F41.1 Active Problem GERD (gastroesophageal reflux disease) K21.9 Active Problem Major depressive disorder, recurrent episode, severe F33.2 Active Problem Other hyperlipidemia E78.4 Active Problem 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 Problem Encounter for chronic pain management G89.29 Active Problem Migraine headache G43.909 Active Assessment Generalized anxiety disorder F41.1 Active Assessment Major depressive disorder, recurrent episode, severe F33.2 Active Problem Primary insomnia F51.01 Active Medications Medication Code System Code Instructions Start Date End Date Status Dosage Colchicine [facility] [address]-64 0.6 MG Orally 2 times a day Jul 13, 2015 1 tablet Uloric [facility] [address]-17 40 MG Orally Once a day Mar 27, 2015 1 tablet Zofran ODT [facility] [address]-57 4 MG Orally every 8 hrs Mar 15, 2015 1 tablet on the tongue and allow to dissolve Maxalt [facility] [address]-24 10 MG Orally take at onset of headache Mar 15, 2015 1 tablet as needed one time Atorvastatin Calcium [facility] [address]-53 40 MG Orally Once a day 1 tablet Trimethobenzamide HCl [facility] [address]-33 300 MG Orally Three times a day 1 capsule as needed Venlafaxine HCl ER [facility] [address]-62 225 MG Orally Once a day Mar 27, 2015 1 tablet with food Allopurinol [facility] [address]-47 100 MG Orally Once a day Mar 30, 2015 1 tablet Amitriptyline HCl [facility] [address]-12 10 MG Orally Once a day 1 tablet Blood Press Monitor/M-L Cuff [facility] [address] 1 Apr 18, 2015 as directed Terazosin HCl [facility] [address]-25 1 MG Orally Once a day 1 capsule Baclofen [facility] [address]-19 10 MG Orally Once a day Apr 18, 2015 Apr 28, 2015 1 tablet with food or milk Hydrocodone-Acetaminophen [facility] [address]-75 10-325 MG Orally every 6 hrs as needed for pain Mar 27, 2015 Apr 26, 2015 1 tablet as needed Trimethoprim [facility] [address]-19 100 MG Orally Once a day 1 tablet Pantoprazole Sodium [facility] [address]-39 40 MG Orally Once a day Mar 15, 2015 1 [place] Concentrate [facility] [address]-78 Orally not defined Incontinence Brief Large [facility] [address]-45 1 Apr 18, 2015 as directed Urocit-K 15 [facility] [address]-88 15 MEQ (1620 MG) Orally 2 times a day 1 tablet with meals Loratadine [facility] [address]-34 10 MG Orally Once a day Jul 13, 2015 1 tablet Divalproex Sodium [facility] [address]-90 500 MG Orally Once a day 1 tablet Procedures Procedure Coding System Code Date Psych diagnostic evaluation, established patient CPT-4 83222 Apr 19, 2015 Results No Known Results Summary Purpose eClinicalWorks Submission
--- OUTSIDE RECORDS SUMMARY | 2017-10-16 10:29 | XMS REPORT ---
Author Author CRISTIAN LANDAVERDE [facility] eClinicalWorks Address Unknown Phone Unavailable Care Team Providers Care Vacuum Filter Operator Name Role Phone CRISTIAN LANDAVERDE CP [...]
--- OUTSIDE RECORDS SUMMARY | 2017-10-16 10:29 | XMS REPORT ---
Author Author DIPAK LOYA [facility] Address [address] [place] [address] Care Team Providers Care Medical Records Technician Name Role Phone DIPAK LOYA Unavailable PROBLEMS Type Condition ICD9-CM Code ZKH07-AL Code Onset Dates Condition Status SNOMED Code Problem Chronic gout of multiple sites, unspecified cause M1A.09X0 Active 15149080 Problem Intractable migraine with aura without status migrainosus G43.119 Active 990693483 Problem Methamphetamine abuse F15.10 Active 420099691 Problem Acute gout due to renal impairment involving left foot M10.372 Active 471646609 Problem Depression F32.9 Active 84702423 Problem Recurrent major depressive disorder, in remission F33.40 Active 86419539 Problem Seasonal allergies J30.2 Active 052740208 Problem Primary insomnia F51.01 Active 359945520 Problem Acute gout of right hand, unspecified cause M10.9 Active 492135175 Problem Acute gout of left foot, unspecified cause M10.9 Active 483595203 Problem Panic attack F41.0 Active 820134844 Problem Social phobia F40.10 Active 59499326 Problem Other hyperlipidemia E78.4 Active 56250870 Problem Migraine headache G43.909 Active 82962072 Problem 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 238512597 Problem 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 276596441 Problem Generalized anxiety disorder F41.1 Active 91440990 Problem Major depressive disorder, recurrent episode, severe F33.2 Active 246984289755 Problem Encounter for chronic pain management G89.29 Active 141058589 Problem Nephrolithiasis N20.0 Active 95684247 Problem GERD (gastroesophageal reflux disease) K21.9 Active 480908101 Problem Hypertension I10 Active 42182408 ALLERGIES Substance Reaction Event Type Date Status Sulfacetamide Sodium Unknown Drug Allergy Apr, Active Phenobarbital Unknown Drug Allergy Apr, Active Cipro Unknown Drug Allergy Apr, Active BusPIRone HCl hives Drug Allergy Apr, Active SOCIAL HISTORY No smoking Hx information available PLAN OF CARE VITAL SIGNS Height 64 in 2016-05-01 Weight 221.6 lbs 2016-05-01 Temperature 98.2 degrees Fahrenheit 2016-05-01 Heart Rate 92 bpm 2016-05-01 Respiratory Rate 20 2016-05-01 BMI 38.03 kg/m2 2016-05-01 Blood pressure systolic 132 mmHg 2016-05-01 Blood pressure diastolic 90 mmHg 2016-05-01 MEDICATIONS Medication Instructions Dosage Frequency Start Date End Date Duration Status Albuterol Sulfate HFA 108 (90 Base) MCG/ACT Inhalation every 4 hrs 2 puffs as needed 4h Dec, 7 days Active Omeprazole 20 MG Orally Once a day 2 capsules 24h Active Atorvastatin Calcium 40 MG Orally Once a day 1 tablet 24h 30 Active Allopurinol 300 MG Orally 2 times a day 1 tablet 12h 30 Active Trimethoprim 100 MG TAKE ONE TABLET BY MOUTH ONCE DAILY 30 Active Terazosin HCl 5 MG Orally Once a day 1 capsule 24h 30 Active Maxalt 10 MG Orally take at onset of headache 1 tablet as needed one time 9 Active Colcrys 0.6 MG TAKE ONE TABLET BY MOUTH TWICE DAILY 30 Active Zofran ODT 4 MG Orally every 8 hrs prn 1 tablet on the tongue and allow to dissolve September, 03 days Active Urocit-K 15 15 MEQ (1620 MG) Orally 2 times a day 1 tablet with meals 12h 30 Active Divalproex Sodium 500 MG Orally Twice a day 1 tablet 12h Active Venlafaxine HCl ER 225 MG Orally Once a day 1 tablet with food 24h Mar, Active RESULTS Name Result Date Reference Range URINE DRUG SCREEN (IN HOUSE) 2016-05-01 Lot # [id number] Exp date 11/2017 Control + COCAINE Negative AMPH Negative MTD Neg THC Neg OPIATE Positive BENZO Positive PCP Neg BAR Neg OXY Positive MAMP Positive TCA Neg BUP Positive MDMA Neg PROCEDURES Procedure Date Ordered Related Diagnosis Body Site Office Visit, Est Pt., Level 3 May 01, 2016 DRUG SCREEN NON TLC DEVICES May 01, 2016 IMMUNIZATIONS No Known Immunizations
--- OUTSIDE RECORDS SUMMARY | 2017-10-16 10:29 | XMS REPORT ---
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 Problem Seasonal allergies J30.2 Active Problem Primary insomnia F51.01 Active Assessment Lumbar strain S39.012A Active Assessment Encounter for chronic pain management G89.29 Active Problem Encounter for chronic pain management G89.29 Active Problem Migraine headache G43.909 Active Problem GERD (gastroesophageal reflux disease) K21.9 Active Problem 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 Problem Depression F32.9 Active Problem Other hyperlipidemia E78.4 Active Problem 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 Medications Medication Code System Code Instructions Start Date End Date Status Dosage Terazosin HCl [facility] [address]-67 1 MG Orally Once a day 1 capsule Urocit-K 15 [facility] [address]-57 15 MEQ (1620 MG) Orally 2 times a day 1 tablet with meals Blood Press Monitor/M-L Cuff [facility] [address] Apr 18, 2015 as directed Incontinence Brief Large [facility] [address]-12 1 Apr 18, 2015 as directed Trimethobenzamide HCl [facility] [address]-80 300 MG Orally Three times a day 1 capsule as needed Maxalt [facility] [address]-52 10 MG Orally take at onset of headache Mar 15, 2015 1 tablet as needed one time Atorvastatin Calcium [facility] [address]-35 40 MG Orally Once a day 1 tablet Divalproex Sodium [facility] [address]-06 500 MG Orally Once a day 1 tablet Baclofen [facility] [address]-09 10 MG Orally Once a day Apr 18, 2015 Apr 28, 2015 1 tablet with food or milk Venlafaxine HCl ER [facility] [address]-23 225 MG Orally Once a day Mar 27, 2015 1 tablet with food Pantoprazole Sodium [facility] [address]-99 40 MG Orally Once a day Mar 15, 2015 1 Trimethoprim [facility] [address]-24 100 MG Orally Once a day 1 tablet Zofran ODT [facility] [address]-44 4 MG Orally every 8 hrs Mar 15, 2015 1 tablet on the tongue and allow to dissolve Allopurinol [facility] [address]-53 100 MG Orally Once a day Mar 30, 2015 1 tablet [place] Concentrate [facility] [address]-14 Orally not defined Loratadine [facility] [address]-11 10 MG Orally Once a day Jul 13, 2015 1 tablet Amitriptyline HCl [facility] [address]-42 10 MG Orally Once a day 1 tablet Uloric [facility] [address]-97 40 MG Orally Once a day Mar 27, 2015 1 tablet Hydrocodone-Acetaminophen [facility] [address]-90 10-325 MG Orally every 6 hrs as needed for pain Mar 27, 2015 Apr 26, 2015 1 tablet as needed Colchicine [facility] [address]-55 0.6 MG Orally 2 times a day Jul 13, 2015 1 tablet Procedures Procedure Coding System Code Date Office Visit, Est Pt., Level 3 CPT-4 84236 Apr 18, 2015 Vital Signs Date/Time: Apr 18, 2015 Temperature 98.0 F Weight 251.7 lbs Height 64 in BMI 43.20 Index Blood Pressure Diastolic 78 mmHg Blood Pressure Systolic 138 mmHg Cardiac Monitoring Heart Rate 90 bpm Results No Known Results Summary Purpose eClinicalWorks Submission
--- OUTSIDE RECORDS SUMMARY | 2017-10-16 10:29 | XMS REPORT ---
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 Problem Primary insomnia F51.01 Active Assessment Nephrolithiasis N20.0 Active Problem Seasonal allergies J30.2 Active Assessment Hypertension I10 Active Problem Depression F32.9 Active Medications No Known Medications Procedures Procedure Coding System Code Date ASSAY OF CALCIUM IN URINE CPT-4 54423 Jun 07, 2015 ASSAY OF URINE CREATININE CPT-4 53932 Jun 07, 2015 VENIPUNCT, ROUTINE* CPT-4 33333 Jun 07, 2015 COMPLETE CBC W/AUTO DIFF WBC CPT-4 78271 Jun 07, 2015 ASSAY OF URINE SODIUM CPT-4 25592 Jun 07, 2015 ASSAY OF MAGNESIUM CPT-4 33322 Jun 07, 2015 ASSAY OF BLOOD/URIC ACID CPT-4 35262 Jun 07, 2015 RENAL FUNCTION PANEL CPT-4 48052 Jun 07, 2015 Results Name Result Date Reference Range Unit Abnormality Flag URINE SODIUM 24 HR ----Sodium, Urine 117 [id number] Not Estab. mmol/L ----Sodium, Urine 136 08017100 40-220 mmol/24 hr URINE CALCIUM 24 HR ----Calcium, Urine 14.8 17959416 Not Estab. mg/dL ----Calcium, Urine 24hr 171.7 35267055 100.0-300.0 mg/24 hr ROUTINE VENIPUNCTURE URINE CREATINTINE 24 HR ----Creatinine, Ur 24hr 1104.3 31377204 800.0-1800.0 mg/24 hr ----Creatinine, Urine 95.2 42701995 15.0-278.0 mg/dL RENAL PROFILE ----Creatinine, Serum 1.08 05083052 0.57-1.00 mg/dL H ----eGFR If NonAfricn Am 62 [id number] >59 mL/min/1.73 ----Glucose, Serum 150 41129944 65-99 mg/dL H ----BUN 17 20150607 6-24 mg/dL ----Chloride, Serum 98 20150607 97-108 mmol/L ----Sodium, Serum 143 94081191 134-144 mmol/L ----Albumin, Serum 4.4 22103179 3.5-5.5 g/dL ----Potassium, Serum 4.0 08632122 3.5-5.2 mmol/L ----Phosphorus, Serum 4.3 38350119 2.5-4.5 mg/dL ----eGFR If Africn Am 72 [id number] >59 mL/min/1.73 ----Calcium, Serum 9.1 71709547 8.7-10.2 mg/dL ----BUN/Creatinine Ratio 16 20150607 9-23 ----Carbon Dioxide, Total 24 20150607 18-29 mmol/L MAGNESIUM, SERUM ----Magnesium, Serum 1.9 33259401 1.6-2.3 mg/dL CBC ----WBC 13.6 86692465 3.4-10.8 x10E3/uL H ----RBC 4.89 96203668 3.77-5.28 x10E6/uL ----Hemoglobin 15.5 29524730 11.1-15.9 g/dL ----RDW 14.4 20150607 12.3-15.4 % ----Platelets 272 [id number] 150-379 x10E3/uL ----Baso (Absolute) 0.1 30792040 0.0-0.2 x10E3/uL ----Eos (Absolute) 1.0 18873059 0.0-0.4 x10E3/uL H ----Hematocrit 46.1 16726520 34.0-46.6 % ----Monocytes(Absolute) 0.9 [id number] 0.1-0.9 x10E3/uL ----MCV 94 33882651 79-97 fL ----Lymphs (Absolute) 4.1 [id number] 0.7-3.1 x10E3/uL H ----MCH 31.7 [id number] 26.6-33.0 pg ----Neutrophils (Absolute) 7.4 [id number] 1.4-7.0 x10E3/uL H ----MCHC 33.6 21748999 31.5-35.7 g/dL ----Neutrophils 55 73854158 % ----Immature Granulocytes 0 32415139 % ----Lymphs 30 10806690 % ----Immature Grans (Abs) 0.0 95697012 0.0-0.1 x10E3/uL ----Monocytes 7 33553844 % ----Eos 7 27209065 % ----Basos 1 20150607 % URINE MAGNESIUM 24HR ----Magnesium,Urine 24hr 69.6 32012660 12.0-293.0 mg/24 hr ----Magnesium, U 6.0 20150607 Not Estab. mg/dL URIC ACID, SERUM ----Uric Acid, Serum 5.6 58955399 2.5-7.1 mg/dL Summary Purpose eClinicalWorks Submission
--- OUTSIDE RECORDS SUMMARY | 2017-10-16 10:29 | XMS REPORT ---
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 [address]-56 15 MG Orally every 12 hrs Mar 15, 2015Mar 1 tablet Maxalt [facility] [address]-62 10 MG Orally take at onset of headache Mar 15, 2015 1 tablet as needed one time Amitriptyline HCl [facility] [address]-42 10 MG Orally Once a day 1 tablet Trimethoprim [facility] [address]-50 100 MG Orally Once a day 1 tablet Hydrocodone-Acetaminophen [facility] [address]-49 10-325 MG Orally every 6 hrs as needed for pain Mar 27, 2015 Apr 26, 2015 1 tablet as needed Atorvastatin Calcium [facility] [address]-80 40 MG Orally Once a day 1 tablet Venlafaxine HCl ER [facility] [address]-33 225 MG Orally Once a day Mar 27, 2015 1 tablet with food Zofran ODT [facility] [address]-70 4 MG Orally every 8 hrs Mar 15, 2015 1 tablet on the tongue and allow to dissolve Uloric [facility] [address]-27 40 MG Orally Once a day Mar 27, 2015 1 tablet Terazosin HCl [facility] [address]-91 1 MG Orally Once a day 1 capsule [place] Concentrate [facility] [address]-96 Orally not defined Divalproex Sodium [facility] [address]-16 500 MG Orally Once a day 1 tablet Loratadine [facility] [address]-30 10 MG Orally Once a day Jul 13, 2015 1 tablet Colchicine [facility] [address]-68 0.6 MG Orally 2 times a day Jul 13, 2015 1 tablet Chlorthalidone [facility] [address]-79 25 MG Orally Once a day 1 tablet in the morning Pantoprazole Sodium [facility] [address]-89 40 MG Orally Once a day Mar 15, 2015 1 Trimethobenzamide HCl [facility] [address]-18 300 MG Orally Three times a day 1 capsule as needed Urocit-K [address] [facility] [address]-85 15 MEQ (1620 MG) Orally 2 times a day 1 tablet with meals Procedures Procedure Coding System Code Date VENIPUNCT, ROUTINE* CPT-4 38878 Mar 27, 2015 Office Visit, Est Pt., Level 3 CPT-4 07569 Mar 27, 2015 ASSAY OF BLOOD/URIC ACID CPT-4 93543 Mar 27, 2015 Vital Signs Date/Time: Mar 27, 2015 Temperature 97.2 F Weight 252.7 lbs Height 64 in BMI 43.37 Index Blood Pressure Diastolic 84 mmHg Blood Pressure Systolic 122 mmHg Cardiac Monitoring Heart Rate 90 bpm Results Name Result Date Reference Range Unit Abnormality Flag ROUTINE VENIPUNCTURE URIC ACID, SERUM Summary Purpose eClinicalWorks Submission
--- OUTSIDE RECORDS SUMMARY | 2017-10-16 10:29 | XMS REPORT ---
Author Author CRISTIAN LANDAVERDE [facility] eClinicalWorks Address Unknown Phone Unavailable Care Team Providers Care Technical Lead Name Role Phone CRISTIAN LANDAVERDE CP Unavailable [...]
--- OUTSIDE RECORDS SUMMARY | 2017-10-16 10:30 | XMS REPORT ---
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 Problem Migraine headache G43.909 Active Problem Other hyperlipidemia E78.4 Active Problem Hypertension I10 Active Problem Nephrolithiasis N20.0 Active Problem Chronic gout of multiple sites, unspecified cause M1A.09X0 Active Problem GERD (gastroesophageal reflux disease) K21.9 Active Problem Encounter for chronic pain management G89.29 Active Problem Major depressive disorder, recurrent episode, severe F33.2 Active Problem Generalized anxiety disorder F41.1 Active Problem Primary insomnia F51.01 Active Problem Seasonal allergies J30.2 Active Problem Depression F32.9 Active Assessment Chronic gout of multiple sites, unspecified cause M1A.09X0 Active Problem 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 Medications Medication Code System Code Instructions Start Date End Date Status Dosage Colcrys [facility] 04746568722 0.6 MG TAKE ONE TABLET BY MOUTH TWICE DAILY Xanax [facility] [address]-67 1 MG Orally up to twice a day prn anxiety May 17, 2015 1 tablet Divalproex Sodium [facility] 32743059047 500 MG Orally Twice a day 1 tablet Terazosin HCl [facility] 66833057667 5 MG Orally Once a day 1 capsule Maxalt [facility] 18428074139 10 MG Orally take at onset of headache 1 tablet as needed one time Atorvastatin Calcium [facility] [address]-11 40 MG Orally Once a day 1 tablet PredniSONE [facility] [address]-53 20 MG Orally Once a day Mar 21, 2016 Mar 26, 2016 1 tablet Albuterol Sulfate HFA [facility] [address]-97 108 (90 Base) MCG/ACT Inhalation every 4 hrs Jan 08, 2016 2 puffs as needed Urocit-K 15 [facility] 10302116266 15 MEQ (1620 MG) Orally 2 times a day 1 tablet with meals Morphine Sulfate ER [facility] [address]-85 30 MG Orally every 12 hrs September 07, 2015 1 tablet Omeprazole [facility] [address]-87 20 MG Orally Once a day 2 capsules Zofran ODT [facility] [address]-56 4 MG Orally every 8 hrs prn October 16, 2015 1 tablet on the tongue and allow to dissolve Allopurinol [facility] 77669024509 300 MG Orally 2 times a day 1 tablet Trimethoprim [facility] 13721623005 100 MG TAKE ONE TABLET BY MOUTH ONCE DAILY Procedures Procedure Coding System Code Date Office Visit, Est Pt., Level 3 CPT-4 31166 Mar 21, 2016 Vital Signs Date/Time: Mar 21, 2016 Cardiac Monitoring Heart Rate 92 bpm Weight 216.2 lbs Height 64 in BMI 37.11 Index Blood Pressure Diastolic 84 mmHg Blood Pressure Systolic 138 mmHg Results No Known Results Summary Purpose eClinicalWorks Submission
--- OUTSIDE RECORDS SUMMARY | 2017-10-16 10:30 | XMS REPORT ---
Author Author CAL HYATT [facility] Address [address] [place] [address] Care Team Providers Care Recreational Vehicle Repairer Name Role Phone OLENA CAL Unavailable PROBLEMS Type Condition ICD9-CM Code [id number] Code Onset Dates Condition Status SNOMED Code Problem Chronic gout of multiple sites, unspecified cause M1A.09X0 Active 89054485 Problem Intractable migraine with aura without status migrainosus G43.119 Active 922020805 Problem Methamphetamine abuse F15.10 Active 575664149 Problem Acute gout due to renal impairment involving left foot M10.372 Active 902203063 Problem Primary insomnia F51.01 Active 272744623 Problem Panic attack F41.0 Active 446637187 Problem Seasonal allergies J30.2 Active 279068451 Problem Other hyperlipidemia E78.4 Active 78684527 Problem Acute gout of right hand, unspecified cause M10.9 Active 775937133 Problem Acute gout of left foot, unspecified cause M10.9 Active 134732003 Problem Social phobia F40.10 Active 09174743 Problem Recurrent major depressive disorder, in remission F33.40 Active 56606416 Problem 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 820269467 Problem Encounter for chronic pain management G89.29 Active 545214894 Problem Depression F32.9 Active 05015063 Problem 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 854371678 Problem Major depressive disorder, recurrent episode, severe F33.2 Active 986828971348 Problem Generalized anxiety disorder F41.1 Active 35843751 Problem GERD (gastroesophageal reflux disease) K21.9 Active 158703780 Problem Hypertension I10 Active 15198122 Problem Migraine headache G43.909 Active 21680950 Problem Nephrolithiasis N20.0 Active 63897270 ALLERGIES Substance Reaction Event Type Date Status Sulfacetamide Sodium Unknown Drug Allergy September, Active Phenobarbital Unknown Drug Allergy September, Active Cipro Unknown Drug Allergy September, Active BusPIRone HCl hives Drug Allergy September, Active NSAIDS Unknown Non Drug Allergy September, Active SOCIAL HISTORY Never Assessed PLAN OF CARE Activity Details Follow Up prn Reason:Depression, social phobia, ADHD VITAL SIGNS MEDICATIONS No Known Medications RESULTS No Results PROCEDURES Procedure Date Ordered Result Body Site Psychotherapy, patient &/family, 30 minutes, established patient October 09, 2016 IMMUNIZATIONS No Known Immunizations MEDICAL (GENERAL) HISTORY Type Description Date Medical History renal disease: medullary sponge kidney Medical History hyperlipidemia Medical History Gout Medical History insomnia Medical History depression Medical History Anxiety disorder Surgical History tonsilectomy Surgical History cholecyatectomy Surgical History DNC Surgical History appendectomy Surgical History kidney stone removal Hospitalization History surgeries
--- OUTSIDE RECORDS SUMMARY | 2017-10-16 10:30 | XMS REPORT ---
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 Active 181254244 Problem Acute gout due to renal impairment involving left foot M10.372 Active 206252302 Problem Primary insomnia F51.01 Active 607471992 Problem Panic attack F41.0 Active 711972084 Problem Seasonal allergies J30.2 Active 605301069 Problem Other hyperlipidemia E78.4 Active 11593198 Problem Acute gout of right hand, unspecified cause M10.9 Active 459142280 Problem Acute gout of left foot, unspecified cause M10.9 Active 539644739 Problem Social phobia F40.10 Active 77774394 Problem Recurrent major depressive disorder, in remission F33.40 Active 12259837 Problem 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 251652886 Problem Encounter for chronic pain management G89.29 Active 920343575 Problem Depression F32.9 Active 22182499 Problem 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 515599928 Problem Major depressive disorder, recurrent episode, severe F33.2 Active 282245327005 Problem Generalized anxiety disorder F41.1 Active 67662035 Problem GERD (gastroesophageal reflux disease) K21.9 Active 773706964 Problem Hypertension I10 Active 62752831 Problem Migraine headache G43.909 Active 30437065 Problem Nephrolithiasis N20.0 Active 65841083 ALLERGIES No Information SOCIAL HISTORY Never Assessed PLAN OF CARE VITAL SIGNS MEDICATIONS No Known Medications RESULTS No Results PROCEDURES No Known procedures IMMUNIZATIONS No Known Immunizations MEDICAL (GENERAL) HISTORY Type Description Date Medical History renal disease: medullary sponge kidney Medical History hyperlipidemia Medical History Gout Medical History insomnia Medical History depression Medical History Anxiety disorder Surgical History tonsilectomy Surgical History cholecyatectomy Surgical History DNC Surgical History appendectomy Surgical History kidney stone removal Hospitalization History surgeries
--- OUTSIDE RECORDS SUMMARY | 2017-10-16 10:30 | XMS REPORT ---
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 Problem Gout attack 274.01 Active Problem Routine adult health maintenance V70.0 Active Assessment 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 Assessment Exposure to head lice V01.89 Active Assessment Dysuria 788.1 Active Assessment Gout attack 274.01 Active Medications Medication Code System Code Instructions Start Date End Date Status Dosage Amitriptyline HCl [facility] [address]-05 10 MG Orally Once a day 1 tablet Loratadine [facility] [address]-42 10 MG Orally Once a day 1 tablet Trimethobenzamide HCl [facility] [address]-38 300 MG Orally Three times a day 1 capsule as needed Rizatriptan Benzoate [facility] [address]-58 5 MG Orally Once a day 1 tablet as needed one time Venlafaxine HCl ER [facility] [address]-49 150 MG Orally Once a day 1 capsule with food Omeprazole [facility] [address]-96 20 MG Orally Once a day 1 capsule Chlorthalidone [facility] [address]-49 25 MG Orally Once a day 1 tablet in the morning Colchicine [facility] [address]-50 0.6 MG Orally Once a day 1 tablet Hydrocodone-Acetaminophen [facility] [address]-42 10-325 MG Orally every 6 hrs Jan 29, 2015 Feb 28, 2015 1 tablet as needed Natroba [facility] [address]-90 0.9 % Externally treat entire head, leave on for 10 minutes then rinse out with warm water, repeat in 1 week Jan 29, 2015 as directed Urocit-K 15 [facility] [address]-67 15 MEQ (1620 MG) Orally 2 times a day 1 tablet with meals Divalproex Sodium [facility] [address]-90 500 MG Orally Once a day 1 tablet Trimethoprim [facility] [address]-07 100 MG Orally Once a day 1 tablet Atorvastatin Calcium [facility] [address]-40 40 MG Orally Once a day 1 tablet Terazosin HCl [facility] [address]-47 1 MG Orally Once a day 1 capsule Procedures Procedure Coding System Code Date ASSAY OF BLOOD/URIC ACID CPT-4 16174 Jan 29, 2015 MANUAL CELL COUNT, EACH CPT-4 65923 Jan 29, 2015 URINALYSIS, AUTO, W/O SCOPE CPT-4 79290 Jan 29, 2015 VENIPUNCT, ROUTINE* CPT-4 17667 Jan 29, 2015 URINE CULTURE/COLONY COUNT CPT-4 95716 Jan 29, 2015 Office Visit, Est Pt., Level 3 CPT-4 30356 Jan 29, 2015 Vital Signs Date/Time: Jan 29, 2015 Temperature 98.0 F Weight 243.3 lbs Height 64 in BMI 41.76 Index Blood Pressure Diastolic 78 mmHg Blood Pressure Systolic 112 mmHg Cardiac Monitoring Heart Rate 96 bpm Results Name Result Date Reference Range Unit Abnormality Flag UA W/CULTURE IF INDICATED (IN HOUSE) Summary Purpose eClinicalWorks Submission
--- OUTSIDE RECORDS SUMMARY | 2017-10-16 10:30 | XMS REPORT ---
Author Author DIPAK LOYA [facility] eClinicalWorks Address Unknown Phone Unavailable Care Team Providers Care Programming Engineer Name Role Phone DIPAK LOYA CP [...] GERD (gastroesophageal reflux disease) K21.9 Active Assessment Lymphocytosis D72.820 Active Problem Primary insomnia F51.01 Active Problem Seasonal allergies J30.2 Active Problem Depression F32.9 Active Medications No Known Medications Procedures Procedure Coding System Code Date RBC SED RATE, AUTOMATED CPT-4 04995 Jun 18, 2015 RHEUMATOID FACTOR, QUANT CPT-4 96412 Jun 18, 2015 ANTISTREPTOLYSIN O, TITER CPT-4 91250 Jun 18, 2015 ANTINUCLEAR ANTIBODIES CPT-4 49388 Jun 18, 2015 C-REACTIVE PROTEIN CPT-4 31094 Jun 18, 2015 VENIPUNCT, ROUTINE* CPT-4 35570 Jun 18, 2015 Results Name Result Date Reference Range Unit Abnormality Flag ROUTINE VENIPUNCTURE Summary Purpose eClinicalWorks Submission
--- OUTSIDE RECORDS SUMMARY | 2017-10-16 10:30 | XMS REPORT ---
Author Author CRISTIAN LANDAVERDE [facility] eClinicalWorks Address Unknown Phone Unavailable Care Team Providers Care Business Specialist Name Role Phone CRISTIAN LANDAVERDE CP Unavailable [...]
--- OUTSIDE RECORDS SUMMARY | 2017-10-16 10:31 | XMS REPORT ---
Author Author DIPAK LOYA Organization eClinicalWorks Address Unknown Phone Unavailable Care Team Providers Care Bushing And Broach Operator Name Role Phone DIPAK LOYA CP Unavailable [...]
--- OUTSIDE RECORDS SUMMARY | 2017-10-16 10:31 | XMS REPORT ---
Author Author CRISTIAN LANDAVERDE [facility] eClinicalWorks Address Unknown Phone Unavailable Care Team Providers Care Economics Faculty Member Name Role Phone CRISTIAN LANDAVERDE CP Unavailable Allergies No Known Allergies Problems Problem Type Condition Code Onset Dates Condition Status Assessment Encounter for immunization Z23 Active Problem Seasonal allergies J30.2 Active Problem [...] tophus M1A.3720 Active Medications No Known Medications Procedures Procedure Coding System Code Date SINGLE IMMUNIZATION ADMIN CPT-4 91039 Apr 04, 2015 FLUARIX QUAD (3 & UP)-GSK-2014 CPT-4 53863 Apr 04, 2015 Results No Known Results Immunizations Vaccine Administration Date FLUARIX QUAD (3 & UP)-GSK-2014Apr 04, 2015 Summary Purpose eClinicalWorks Submission
--- OUTSIDE RECORDS SUMMARY | 2017-10-16 10:31 | XMS REPORT ---
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
--- OUTSIDE RECORDS SUMMARY | 2017-10-16 10:31 | XMS REPORT ---
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 Active 027809908 Problem Acute gout due to renal impairment involving left foot M10.372 Active 246248201 Problem Primary insomnia F51.01 Active 536724820 Problem Panic attack F41.0 Active 325462537 Problem Seasonal allergies J30.2 Active 501483533 Problem Other hyperlipidemia E78.4 Active 88434461 Problem Acute gout of right hand, unspecified cause M10.9 Active 212844659 Problem Acute gout of left foot, unspecified cause M10.9 Active 428975028 Problem Social phobia F40.10 Active 47921220 Problem Recurrent major depressive disorder, in remission F33.40 Active 49269510 Problem 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 289897992 Problem Encounter for chronic pain management G89.29 Active 911179958 Problem Depression F32.9 Active 03482342 Problem 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
--- OUTSIDE RECORDS SUMMARY | 2017-10-16 10:31 | XMS REPORT ---
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 [address]-87 10-325 MG Orally every 6 hrs. MUST LAST 28 DAYS. Apr 26, 2015 May 24, 2015 1 tablet as needed Incontinence Brief Large [facility] [address]-83 1 Apr 18, 2015 as directed Uloric [facility] [address]-88 40 MG Orally Once a day Mar 27, 2015 1 tablet Pantoprazole Sodium [facility] [address]-23 40 MG Orally Once a day Mar 15, 2015 1 Zofran ODT [facility] [address]-11 4 MG Orally every 8 hrs Mar 15, 2015 1 tablet on the tongue and allow to dissolve Terazosin HCl [facility] [address]-43 1 MG Orally Once a day 1 capsule Blood Press Monitor/M-L Cuff [facility] [address] 1 Apr 18, 2015 as directed Venlafaxine HCl ER [facility] [address]-10 225 MG Orally Once a day Mar 27, 2015 1 tablet with food [place] Concentrate [facility] [address]-49 Orally not defined Colchicine [facility] [address]-86 0.6 MG Orally 2 times a day Jul 13, 2015 1 tablet Divalproex Sodium [facility] [address]-86 500 MG Orally Once a day 1 tablet Urocit-K [address] [facility] [address]-67 15 MEQ (1620 MG) Orally 2 times a day 1 tablet with meals Amitriptyline HCl [facility] [address]-22 10 MG Orally Once a day 1 tablet Trimethoprim [facility] [address]-63 100 MG Orally Once a day 1 tablet Bactrim DS [facility] [address]-96 800-160 MG Orally Twice a day Apr 30, 2015 May 05, 2015 1 tablet Allopurinol [facility] [address]-47 100 MG Orally Once a day Mar 30, 2015 1 tablet Trimethobenzamide HCl [facility] [address]-11 300 MG Orally Three times a day 1 capsule as needed Atorvastatin Calcium [facility] [address]-27 40 MG Orally Once a day [address] tablet [address] [facility] [address]-87 10 MG Orally take at onset of headache Mar 15, 2015 1 tablet as needed one time Loratadine [facility] [address]-66 10 MG Orally Once a day Jul 13, 2015 1 tablet PredniSONE [facility] [address]-87 20 MG Orally Once a day Apr 30, 2015 May 05, 2015 as directed Procedures Procedure Coding System Code Date URINE CULTURE/COLONY COUNT CPT-4 84964 Apr 30, 2015 Office Visit, Est Pt., Level 3 CPT-4 17261 Apr 30, 2015 URINALYSIS, AUTO, W/O SCOPE CPT-4 88235 Apr 30, 2015 Vital Signs Date/Time: Apr 30, 2015 Temperature 97.4 F Weight 258.6 lbs Height 64 in BMI 44.38 Index Blood Pressure Diastolic 90 mmHg Blood Pressure Systolic 134 mmHg Cardiac Monitoring Heart Rate 90 bpm Results Name Result Date Reference Range Unit Abnormality Flag UA W/CULTURE IF INDICATED (IN HOUSE) ----CAITLIN trace 20150430 ----NIT negative 20150430 ----SG 1.020 20150430 ----KET negative 20150430 ----HUA negative 20150430 ----GLU negative 20150430 ----Odor none 20150430 ----pH 7.0 20150430 ----BLO 2+ 20150430 ----URO 0.2 20150430 ----Protein negative 20150430 ----Lot # [id number] ----Exp date [id number] ----Clarity cloudy 20150430 ----Color yellow [id number] Summary Purpose eClinicalWorks Submission
--- OUTSIDE RECORDS SUMMARY | 2017-10-16 10:32 | XMS REPORT ---
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 Problem Gout attack 274.01 Active Problem Routine adult health maintenance V70.0 Active Assessment Gout attack 274.01 Active Assessment 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 Assessment Routine adult health maintenance V70.0 Active Medications Medication Code System Code Instructions Start Date End Date Status Dosage Medrol (Xavier) [facility] [address]-20 4 MG Orally as directed Jan 20, 2015 Jan 26, 2015 as directed Rizatriptan Benzoate [facility] [address]-93 5 MG Orally Once a day 1 tablet as needed one time Divalproex Sodium [facility] [address]-13 500 MG Orally Once a day 1 tablet Amitriptyline HCl [facility] [address]-18 10 MG Orally Once a day 1 tablet Terazosin HCl [facility] [address]-74 1 MG Orally Once a day 1 capsule [place] Concentrate [facility] [address]-56 Orally not defined Colchicine [facility] [address]-01 0.6 MG Orally Once a day 1 tablet Loratadine [facility] [address]-46 10 MG Orally Once a day 1 tablet Venlafaxine HCl ER [facility] [address]-65 150 MG Orally Once a day 1 capsule with food Atorvastatin Calcium [facility] [address]-81 40 MG Orally Once a day 1 tablet Trimethoprim [facility] [address]-90 100 MG Orally Once a day 1 tablet Hydrocodone-Acetaminophen [facility] [address]-16 10-300 MG Orally every 8 hrs Jan 27, 2015 1 tablet as needed Chlorthalidone [facility] [address]-59 25 MG Orally Once a day 1 tablet in the morning Omeprazole [facility] [address]-01 20 MG Orally Once a day 1 capsule Trimethobenzamide HCl [facility] [address]-78 300 MG Orally Three times a day 1 capsule as needed Procedures Procedure Coding System Code Date Office Visit, New Pt., Level 4 CPT-4 01771 Jan 20, 2015 No Charge CPT-4 90235 Jan 20, 2015 Vital Signs Date/Time: Jan 20, 2015 Temperature 98.9 F Weight 238 lbs Height 64 in BMI 40.85 Index Blood Pressure Diastolic 76 mmHg Blood Pressure Systolic 138 mmHg Cardiac Monitoring Heart Rate 78 bpm Results No Known Results Summary Purpose eClinicalWorks Submission
--- OUTSIDE RECORDS SUMMARY | 2017-10-16 10:32 | XMS REPORT ---
Author Author DIPAK LOYA Organization eClinicalWorks Address Unknown Phone Unavailable Care Team Providers Care Hurricane Tracker Name Role Phone DIPAK LOYA CP Unavailable [...] Instructions Start Date End Date Status Dosage Divalproex Sodium [facility] [address]-20 500 MG Orally Twice a day 1 tablet Results No Known Results Summary Purpose eClinicalWorks Submission
--- OUTSIDE RECORDS SUMMARY | 2017-10-16 10:32 | XMS REPORT ---
Author Author LEXUS TALAVERA [facility] eClinicalWorks Address Unknown Phone Unavailable Care Team Providers Care Woodwind Reeds Cutter Name Role Phone LXEUS TALAVERA Unavailable Allergies No Known Allergies Problems [...] Active Problem Primary insomnia F51.01 Active Medications No Known Medications Procedures Procedure Coding System Code Date Psychotherapy, patient &/family, 45 minutes, established patient CPT-4 91580 May 24, 2015 Results No Known Results Summary Purpose eClinicalWorks Submission
--- OUTSIDE RECORDS SUMMARY | 2017-10-16 10:32 | XMS REPORT ---
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
--- OUTSIDE RECORDS SUMMARY | 2017-10-16 10:32 | XMS REPORT ---
Author Author LEXUS TALAVERA [facility] eClinicalWorks Address Unknown Phone Unavailable Care Team Providers Care Molder Operator Name Role Phone LEXUS TALAVERA Unavailable Allergies [...] GERD (gastroesophageal reflux disease) K21.9 Active Assessment Major depressive disorder, recurrent episode, severe F33.2 Active Problem Primary insomnia F51.01 Active Problem Seasonal allergies J30.2 Active Assessment Generalized anxiety disorder F41.1 Active Problem Depression F32.9 Active Medications No Known Medications Procedures Procedure Coding System Code Date Psychotherapy, patient &/family, 45 minutes, established patient CPT-4 18734 Jun 22, 2015 Results No Known Results Summary Purpose eClinicalWorks Submission
--- OUTSIDE RECORDS SUMMARY | 2017-10-16 10:32 | XMS REPORT ---
Author Author SALAZAR GALLOWAY Organization eClinicalWorks Address Unknown Phone Unavailable Care Team Providers Care Hard Rock Miner Name Role Phone SALAZAR GALLOWAY CP Unavailable Allergies, Adverse Reactions, Alerts Substance [...] (gastroesophageal reflux disease) K21.9 Active Assessment Gout of foot, unspecified cause, unspecified chronicity, unspecified laterality M10.9 Active Problem Primary insomnia F51.01 Active Problem Seasonal allergies J30.2 Active Problem Depression F32.9 Active Medications Medication Code System Code Instructions Start Date End Date Status Dosage Venlafaxine HCl ER [facility] [address]-01 225 MG Orally Once a day Mar 27, 2015 1 tablet with food Blood Press Monitor/M-L Cuff [facility] 363[address]68 1 Apr 18, 2015 as directed Divalproex Sodium [facility] 14845811505 500 MG Orally Twice a day [address] [facility] [address]-26 40 MG Orally 3 times a day Mar 27, 2015 1 tablet Incontin[address] Brief Large [facility] [address]-07 1 Apr 18, [address] as [address] [facility] [address]-30 4 MG Orally every 8 hrs prn October 16, 2015 1 tablet on the tongue and allow to dissolve PredniSONE [facility] [address]-83 20 mg Orally twice a day November 27, 2015 December 04, [address] [facility] [address]-52 4 MG Orally every 8 hrs Mar 15, 2015 1 tablet on the tongue and allow to dissolve Colcrys [facility] 57917813534 0.6 MG TAKE ONE TABLET BY MOUTH TWICE DAILY Trimethoprim [facility] 66940142434 100 MG TAKE ONE TABLET BY MOUTH ONCE DAILY Ventolin HFA [facility] [address]-19 108 (90 Base) MCG/ACT Inhalation every 4 hrs 2 puffs as needed Zofran [facility] 29047004291 4 MG Orally 3 times a day [address] [facility] [address]-46 10 MG Orally Once a day [address] [facility] [address]-08 300 MG Orally 2 times a day Mar 30, [address] [facility] [address]-37 1 MG Orally Once a day May 17, 2015 1 [address] [facility] [address]-29 30 MG Orally every 12 hrs September 07, [address] [facility] [address]-43 300 MG Orally Three times a day 1 capsule as needed Albuterol Sulfate [facility] [address]-73 (2.5 MG/3ML) 0.083% Inhalation Three times a day [address] [facility] 97736231740 10 MG Orally take at onset of headache 1 tablet as needed one time Terazosin HCl [facility] 88414365403 5 MG Orally Once a day [address] [facility] [address]-22 40 MG Orally Once a day [address] [facility] [address]-19 40 MG Orally Once a day Mar 15, 2015 1 Urocit-K 15 [facility] 64181620908 15 MEQ (1620 MG) Orally 2 times a day 1 tablet with meals Procedures Procedure Coding System Code Date Office Visit, Est Pt., Level 3 CPT-4 38377 November 27, 2015 Vital Signs Date/Time: November 27, 2015 Cardiac Monitoring Heart Rate 90 bpm Weight 220.0 lbs Height 64 in Blood Pressure Diastolic 74 mmHg Blood Pressure Systolic 108 mmHg Results No Known Results Summary Purpose eClinicalWorks Submission
--- OUTSIDE RECORDS SUMMARY | 2017-10-16 10:32 | XMS REPORT ---
Author Author DIPAK LOYA Organization eClinicalWorks Address Unknown Phone Unavailable Care Team Providers Care Support Services Manager Name Role Phone DIPAK LOYA CP Unavailable [...]
--- OUTSIDE RECORDS SUMMARY | 2017-10-16 10:33 | XMS REPORT ---
Author Author DIPAK LOYA Organization eClinicalWorks Address Unknown Phone Unavailable Care Team Providers Care Blueprint Trimmer Name Role Phone DIPAK LOYA CP Unavailable [...] J30.2 Active Problem Depression F32.9 Active Assessment Other lobsterman (current) drug therapy Z79.899 Active Problem 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 Medications No Known Medications Results No Known Results Summary Purpose eClinicalWorks Submission
--- OUTSIDE RECORDS SUMMARY | 2017-10-16 10:33 | XMS REPORT ---
Author Author RamónGEREMIAS FARFAN [facility] Address [address] [place] [address] Care Team Providers Care Tool Grinder Operator Surface Name Role Phone GEREMIAS Quintana Unavailable PROBLEMS Type Condition ICD9-CM Code SEE77-MH Code Onset Dates Condition Status SNOMED Code Problem Chronic gout of multiple sites, unspecified cause M1A.09X0 Active 60731268 Problem Intractable migraine with aura without status migrainosus G43.119 Active 845464081 Problem Methamphetamine abuse F15.10 Active 822693912 Problem Acute gout due to renal impairment involving left foot M10.372 Active 520087342 Problem Primary insomnia F51.01 Active 230462293 Problem Panic attack F41.0 Active 825017018 Problem Seasonal allergies J30.2 Active 147395481 Problem Other hyperlipidemia E78.4 Active 39350927 Problem Acute gout of right hand, unspecified cause M10.9 Active 847582821 Problem Acute gout of left foot, unspecified cause M10.9 Active 470099631 Problem Social phobia F40.10 Active 89402618 Problem Recurrent major depressive disorder, in remission F33.40 Active 44344266 Problem 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 105924683 Problem Encounter for chronic pain management G89.29 Active 236272282 Problem Depression F32.9 Active 06147597 Problem 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 737587373 Problem Major depressive disorder, recurrent episode, severe F33.2 Active 836706257648 Problem Generalized anxiety disorder F41.1 Active 37441614 Problem GERD (gastroesophageal reflux disease) K21.9 Active 732349198 Problem Hypertension I10 Active 83797897 Problem Migraine headache G43.909 Active 90629167 Problem Nephrolithiasis N20.0 Active 56898253 ALLERGIES Substance Reaction Event Type Date Status Sulfacetamide Sodium Unknown Drug Allergy September, Active Phenobarbital Unknown Drug Allergy September, Active Cipro Unknown Drug Allergy September, Active BusPIRone HCl hives Drug Allergy September, Active NSAIDS Unknown Non Drug Allergy September, Active SOCIAL HISTORY Never Assessed PLAN OF CARE Activity Details Follow Up 6 weeks with new provider Reason: VITAL SIGNS Height 64 in 2016-09-25 Weight 238.4 lbs 2016-09-25 Heart Rate 60 bpm 2016-09-25 Respiratory Rate 18 2016-09-25 BMI 40.92 kg/m2 2016-09-25 Blood pressure systolic 110 mmHg 2016-09-25 Blood pressure diastolic 82 mmHg 2016-09-25 MEDICATIONS Medication Instructions Dosage Frequency Start Date End Date Duration Status Atorvastatin Calcium 40 MG Orally Once a day 1 tablet 24h 30 Active PredniSONE 20 MG Orally Once a day 3 tablets x 3 days, 2 tablets x 3 days, 1 tablet x 3 days, 1/2 tabs x 4 days 24h September, September, 13 days Active Colcrys 0.6 MG TAKE ONE TABLET BY MOUTH TWICE DAILY 30 Active Allopurinol 300 MG Orally 2 times a day 1 tablet 12h 30 Active Zofran ODT 4 MG Orally every 8 hrs prn 1 tablet on the tongue and allow to dissolve 3 Active Omeprazole 20 MG Orally Once a day 2 capsules 24h Active Trimethoprim 100 MG TAKE ONE TABLET BY MOUTH ONCE DAILY 30 Active Terazosin HCl 5 MG Orally Once a day 1 capsule 24h 30 Active Propranolol HCl 10 MG Orally Twice a day prn anxiety 1 tablet September, 30 day(s) Active Divalproex Sodium 500 MG Orally Twice a day 1 tablet 12h 30 Active Venlafaxine HCl ER 150 MG Orally Once a day 1 capsule with food 24h September 30 day(s) Active Urocit-K 15 15 MEQ (1620 MG) Orally 2 times a day 1 tablet with meals 12h 30 Active Albuterol Sulfate HFA 108 (90 Base) MCG/ACT Inhalation every 4 hrs 2 puffs as needed 4h Dec, 7 days Active Maxalt 10 MG Orally take at onset of headache 1 tablet as needed one time 9 Active RESULTS No Results PROCEDURES No Known [...]
--- OUTSIDE RECORDS SUMMARY | 2017-10-16 10:33 | XMS REPORT ---
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
--- OUTSIDE RECORDS SUMMARY | 2017-10-16 10:33 | XMS REPORT ---
Author Author CRISTIAN LANDAVERDE [facility] eClinicalWorks Address Unknown Phone Unavailable Care Team Providers Care Medical Stenographer Name Role Phone CRISTIAN LANDAVERDE CP Unavailable [...] Procedure Coding System Code Date ASSAY OF URINE CREATININE CPT-4 71748 Apr 11, 2015 URINE CULTURE/COLONY COUNT CPT-4 26684 Apr 11, 2015 ASSAY OF PROTEIN, URINE CPT-4 48521 Apr 11, 2015 MANUAL CELL COUNT, EACH CPT-4 22028 Apr 11, 2015 RENAL FUNCTION PANEL CPT-4 42410 Apr 11, 2015 VENIPUNCT, ROUTINE* CPT-4 29865 Apr 11, 2015 Results Name Result Date Reference Range Unit Abnormality Flag ROUTINE VENIPUNCTURE Summary Purpose eClinicalWorks Submission
--- OUTSIDE RECORDS SUMMARY | 2017-10-16 10:33 | XMS REPORT ---
Author Author ONESIMO MURCIA [facility] eClinicalWorks Address Unknown Phone Unavailable Care Team Providers Care Buggy Runner Name Role Phone ONESIMO MURCIA Unavailable Allergies No Known Allergies Problems Problem [...] Active Problem Migraine headache G43.909 Active Assessment Primary insomnia F51.01 Active Assessment Depression F32.9 Active Problem Primary insomnia F51.01 Active Medications Medication Code System Code Instructions Start Date End Date Status Dosage Hydrocodone-Acetaminophen [facility] [address]-96 10-325 MG Orally every 6 hrs. MUST LAST 28 DAYS. Apr 26, 2015 May 24, 2015 1 tablet as needed Uloric [facility] [address]-56 40 MG Orally 3 times a day Mar 27, 2015 1 tablet Allopurinol [facility] [address]-06 100 MG Orally Once a day Mar 30, 2015 1 tablet Zofran ODT [facility] [address]-83 4 MG Orally every 8 hrs Mar 15, 2015 1 tablet on the tongue and allow to dissolve Amitriptyline HCl [facility] [address]-36 10 MG Orally Once a day 1 tablet Divalproex Sodium [facility] [address]-40 500 MG Orally Once a day 1 tablet Terazosin HCl [facility] [address]-25 1 MG Orally Once a day 1 capsule Incontinence Brief Large [facility] [address]-34 1 Apr 18, 2015 as directed Carlisle Concentrate [facility] [address]-12 Orally not defined Maxalt [facility] [address]-81 10 MG Orally take at onset of headache Mar 15, 2015 1 tablet as needed one time Atorvastatin Calcium [facility] [address]-51 40 MG Orally Once a day 1 tablet Xanax [facility] [address]-93 1 MG Orally Once a day May 17, 2015 1 tablet Venlafaxine HCl ER [facility] [address]-58 225 MG Orally Once a day Mar 27, 2015 1 tablet with food Blood Press Monitor/M-L Cuff [facility] [address]91 1 Apr 18, 2015 as directed Trimethobenzamide HCl [facility] [address]-48 300 MG Orally Three times a day 1 capsule as needed Urocit-K 15 [facility] [address]-79 15 MEQ (1620 MG) Orally 2 times a day 1 tablet with meals Colchicine [facility] [address]-94 0.6 MG Orally 2 times a day Jul 13, 2015 1 tablet Loratadine [facility] [address]-11 10 MG Orally Once a day Jul 13, 2015 1 tablet Trimethoprim [facility] [address]-72 100 MG Orally Once a day 1 tablet Procedures Procedure Coding System Code Date Psych diagnostic evaluation w/medical services, established patient CPT-4 37436 May 17, 2015 Results No Known Results Summary Purpose eClinicalWorks Submission
--- OUTSIDE RECORDS SUMMARY | 2017-10-16 10:33 | XMS REPORT ---
Author Author DIPAK LOYA Organization [facility] Address [address] [place] [address] Care Team Providers Care Breakfast And Room Attendant Name Role Phone SHALINI DIPAK Unavailable PROBLEMS Type Condition ICD9-CM Code [id number] Code Onset Dates Condition Status SNOMED Code Problem Other hyperlipidemia E78.4 Active 64456834 Problem Encounter for chronic pain management G89.29 Active 514109803 Problem Migraine headache G43.909 Active 98826069 Problem Chronic gout of multiple sites, unspecified cause M1A.09X0 Active 43830810 Problem Hypertension I10 Active 14345420 Problem Generalized anxiety disorder F41.1 Active 84303255 Problem GERD (gastroesophageal reflux disease) K21.9 Active 368894332 Problem Nephrolithiasis N20.0 Active 22123082 Problem Major depressive disorder, recurrent episode, severe F33.2 Active 197804577153 Problem Seasonal allergies J30.2 Active 779355858 Problem Depression F32.9 Active 61389829 Problem 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 006082875 Problem Primary insomnia F51.01 Active 813574793 Problem 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
--- OUTSIDE RECORDS SUMMARY | 2017-10-16 10:33 | XMS REPORT ---
Author Author CRISTIAN LANDAVERDE [facility] eClinicalWorks Address Unknown Phone Unavailable Care Team Providers Care Implementation Analyst Name Role Phone CRISTIAN LANDAVERDE CP Unavailable [...] Active Problem Migraine headache G43.909 Active Assessment Nephrolithiasis N20.0 Active Assessment 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 Assessment Hypertension I10 Active Assessment Rash R21 Active Assessment Recurrent UTI N39.0 Active Problem Primary insomnia F51.01 Active Medications Medication Code System Code Instructions Start Date End Date Status Dosage Hydrocodone-Acetaminophen [facility] [address]-34 10-325 MG Orally every 6 hrs. MUST LAST 28 DAYS. Apr 26, 2015 1 tablet as needed for pain Elimite [facility] [address]-75 5 % Externally once May 30, 2015 as directed Venlafaxine HCl ER [facility] [address]-93 225 MG Orally Once a day Mar 27, 2015 1 tablet with food Incontinence Brief Large [facility] [address]-71 1 Apr 18, 2015 as directed Allopurinol [facility] [address]-71 100 MG Orally 2 times a day Mar 30, 2015 1 tablet Zofran ODT [facility] [address]-64 4 MG Orally every 8 hrs Mar 15, 2015 1 tablet on the tongue and allow to dissolve Trimethoprim [facility] [address]-51 100 MG Orally Once a day 1 tablet PredniSONE [facility] [address]-50 10 MG Orally twice daily May 30, 2015May one tablet Blood Press Monitor/M-L Cuff [facility] [address]55 1 Apr 18, 2015 as directed Maxalt [facility] [address]-45 10 MG Orally take at onset of headache Mar 15, 2015 1 tablet as needed one time [place] Concentrate [facility] [address]-51 Orally not defined Divalproex Sodium [facility] [address]-18 500 MG Orally Once a day 1 tablet Trimethobenzamide HCl [facility] [address]-60 300 MG Orally Three times a day 1 capsule as needed Xanax [facility] [address]-50 1 MG Orally Once a day May 17, 2015 1 tablet Uloric [facility] [address]-67 40 MG Orally 3 times a day Mar 27, 2015 1 tablet Atorvastatin Calcium [facility] [address]-32 40 MG Orally Once a day 1 tablet Urocit-K 15 [facility] [address]-69 15 MEQ (1620 MG) Orally 2 times a day 1 tablet with meals Loratadine [facility] [address]-63 10 MG Orally Once a day Jul 13, 2015 1 tablet HydrOXYzine HCl [facility] [address]-56 25 MG Orally every 8 hrs May 30, 2015 every 8 hours prn itching Colchicine [facility] [address]-82 0.6 MG Orally 2 times a day Jul 13, 2015 1 tablet Terazosin HCl [facility] [address]-34 1 MG Orally Once a day 1 capsule Procedures Procedure Coding System Code Date Office Visit, Est Pt., Level 3 CPT-4 58400 May 30, 2015 Vital Signs Date/Time: May 30, 2015 Temperature 97.6 F Weight 265.0 lbs Height 64 in BMI 45.48 Index Blood Pressure Diastolic 84 mmHg Blood Pressure Systolic 130 mmHg Cardiac Monitoring Heart Rate 80 bpm Results No Known Results Summary Purpose eClinicalWorks Submission
--- OUTSIDE RECORDS SUMMARY | 2017-10-16 10:33 | XMS REPORT ---
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
--- OUTSIDE RECORDS SUMMARY | 2017-10-16 10:34 | XMS REPORT ---
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 827401464 Problem Migraine headache G43.909 Active 61034767 Problem Other hyperlipidemia E78.4 Active 98274833 Problem Primary insomnia F51.01 Active 549359580 Problem Seasonal allergies J30.2 Active 647297630 Problem Depression F32.9 Active 55645432 Problem 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 952370493 Problem Hypertension I10 Active 00897785 Problem Nephrolithiasis N20.0 Active 78584242 Problem GERD (gastroesophageal reflux disease) K21.9 Active 361457659 Problem Encounter for chronic pain management G89.29 Active 342521116 Problem Major depressive disorder, recurrent episode, severe F33.2 Active 077162230779 Problem Generalized anxiety disorder F41.1 Active 80060054 ALLERGIES Unknown Allergies SOCIAL HISTORY No smoking Hx information available PLAN OF CARE VITAL SIGNS MEDICATIONS Unknown Medications RESULTS No Results PROCEDURES No Known procedures IMMUNIZATIONS No Known Immunizations
--- OUTSIDE RECORDS SUMMARY | 2017-10-16 10:34 | XMS REPORT ---
Author Author DIPAK LOYA Organization eClinicalWorks Address Unknown Phone Unavailable Care Team Providers Care Music Theory Teacher Name Role Phone DIPAK LOYA CP Unavailable [...] GERD (gastroesophageal reflux disease) K21.9 Active Assessment Bronchitis J40 Active Problem Primary insomnia F51.01 Active Problem Seasonal allergies J30.2 Active Problem Depression F32.9 Active Medications Medication Code System Code Instructions Start Date End Date Status Dosage Xanax [facility] [address]-36 1 MG Orally Once a day May 17, 2015 1 tablet Promethazine-Codeine [facility] [address]-74 6.25-10 MG/5ML Orally every 6 hrs Jun 15, 2015 5 ml as needed Morphine Sulfate [facility] [address]-50 30 MG Orally 2 times a day Jun 15, 2015 1 tablet as needed Results No Known Results Summary Purpose eClinicalWorks Submission
--- OUTSIDE RECORDS SUMMARY | 2017-10-16 10:34 | XMS REPORT ---
Author Author KELLY RAMAN Organization eClinicalWorks Address Unknown Phone Unavailable Care Team Providers Care Loss Prevention Representative Name Role Phone KELLY RAMAN CP Unavailable Allergies, Adverse Reactions, Alerts Substance [...] Active Problem Migraine headache G43.909 Active Assessment 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 Assessment Renal stone N20.0 Active Problem Primary insomnia F51.01 Active Medications Medication Code System Code Instructions Start Date End Date Status Dosage Urocit-K 15 [facility] [address]-44 15 MEQ (1620 MG) Orally 2 times a day 1 tablet with meals Terazosin HCl [facility] [address]-63 1 MG Orally Once a day 1 capsule [place] Concentrate [facility] [address]-66 Orally not defined Divalproex Sodium [facility] [address]-43 500 MG Orally Once a day 1 tablet Incontinence Brief Large [facility] [address]-30 1 Apr 18, 2015 as directed Hydrocodone-Acetaminophen [facility] [address]-35 10-325 MG Orally every 6 hrs as needed for pain Mar 27, 2015 Apr 26, 2015 1 tablet as needed Zofran ODT [facility] [address]-44 4 MG Orally every 8 hrs Mar 15, 2015 1 tablet on the tongue and allow to dissolve Allopurinol [facility] [address]-28 100 MG Orally Once a day Mar 30, 2015 1 tablet Atorvastatin Calcium [facility] [address]-17 40 MG Orally Once a day 1 tablet Maxalt [facility] [address]-13 10 MG Orally take at onset of headache Mar 15, 2015 1 tablet as needed one time Pantoprazole Sodium [facility] [address]-71 40 MG Orally Once a day Mar 15, 2015 1 Amitriptyline HCl [facility] [address]-84 10 MG Orally Once a day 1 tablet Loratadine [facility] [address]-88 10 MG Orally Once a day Jul 13, 2015 1 tablet Colchicine [facility] [address]-58 0.6 MG Orally 2 times a day Jul 13, 2015 1 tablet Uloric [facility] [address]-07 40 MG Orally Once a day Mar 27, 2015 1 tablet Trimethoprim [facility] [address]-64 100 MG Orally Once a day 1 tablet Blood Press Monitor/M-L Cuff [facility] [address]70 1 Apr 18, 2015 as directed Trimethobenzamide HCl [facility] [address]-55 300 MG Orally Three times a day 1 capsule as needed Venlafaxine HCl ER [facility] [address]-19 225 MG Orally Once a day Mar 27, 2015 1 tablet with food Procedures Procedure Coding System Code Date URINE CULTURE/COLONY COUNT CPT-4 77284 Apr 25, 2015 Office Visit, Est Pt., Level 3 CPT-4 97496 Apr 25, 2015 URINALYSIS, AUTO, W/O SCOPE CPT-4 44883 Apr 25, 2015 Vital Signs Date/Time: Apr 25, 2015 Temperature 97.0 F Weight 244.5 lbs Height 64 in BMI 41.96 Index Blood Pressure Diastolic 88 mmHg Blood Pressure Systolic 144 mmHg Cardiac Monitoring Heart Rate 92 bpm Results Name Result Date Reference Range Unit Abnormality Flag UA LONG DIP (IN HOUSE) ----CAITLIN negative 20150425 ----NIT negative 20150425 ----SG 1.015 20150425 ----KET negative 20150425 ----HUA negative 20150425 ----GLU negative 20150425 ----Odor none 20150425 ----pH 7.0 20150425 ----BLO 3+ 20150425 ----URO 0.2 20150425 ----Protein 1+ 20150425 ----Lot # [id number] ----Exp date 20150425 ----Clarity cloudy 20150425 ----Color red [id number] Summary Purpose eClinicalWorks Submission
--- OUTSIDE RECORDS SUMMARY | 2017-10-16 10:34 | XMS REPORT ---
Author Author DIPAK LOYA Organization eClinicalWorks Address Unknown Phone Unavailable Care Team Providers Care Care Giver Name Role Phone DIPAK LOYA CP Unavailable [...] Start Date End Date Status Dosage Xanax [facility] [address]-68 1 MG Orally Once a day May 17, 2015 1 tablet Morphine Sulfate ER [facility] [address]-53 30 MG Orally every 12 hrs September 07, 2015 1 tablet Results No Known Results Summary Purpose eClinicalWorks Submission
--- OUTSIDE RECORDS SUMMARY | 2017-10-16 10:34 | XMS REPORT ---
Author Author DIPAK LOYA Organization eClinicalWorks Address Unknown Phone Unavailable Care Team Providers Care Rotary Peel Oven Tender Name Role Phone DIPAK LOYA CP Unavailable [...]
--- OUTSIDE RECORDS SUMMARY | 2017-10-16 10:34 | XMS REPORT ---
Author Author BURT CERNA [facility] eClinicalWorks Address Unknown Phone Unavailable Care Team Providers Care Mis Specialist Name Role Phone BURT CERNA Unavailable Allergies, Adverse Reactions, Alerts Substance Reaction [...] GERD (gastroesophageal reflux disease) K21.9 Active Assessment COPD (chronic obstructive pulmonary disease) with acute bronchitis J44.0 Active Problem Primary insomnia F51.01 Active Problem Seasonal allergies J30.2 Active Problem Depression F32.9 Active Medications Medication Code System Code Instructions Start Date End Date Status Dosage Xanax [facility] [address]-56 1 MG Orally Once a day May 17, 2015 1 tablet Hydrocodone-Acetaminophen [facility] [address]-15 10-325 MG Orally every 6 hrs. MUST LAST 28 DAYS. Apr 26, 2015 1 tablet as needed for pain Venlafaxine HCl ER [facility] [address]-04 225 MG Orally Once a day Mar 27, 2015 1 tablet with food Uloric [facility] [address]-87 40 MG Orally 3 times a day Mar 27, 2015 1 tablet Allopurinol [facility] [address]-79 100 MG Orally 2 times a day Mar 30, 2015 1 tablet Divalproex Sodium [facility] [address]-20 500 MG Orally Once a day 1 tablet Trimethobenzamide HCl [facility] [address]-39 300 MG Orally Three times a day 1 capsule as needed PredniSONE [facility] [address]-58 20 MG Orally Once a day Jun 11, 2015 Jun 16, 2015 2 tablet Blood Press Monitor/M-L Cuff [facility] [address] 1 Apr 18, 2015 as directed Zofran ODT [facility] [address]-98 4 MG Orally every 8 hrs Mar 15, 2015 1 tablet on the tongue and allow to dissolve Urocit-K 15 [facility] 75108978839 15 MEQ (1620 MG) Orally 2 times a day 1 tablet with meals Trimethoprim [facility] [address]-03 100 MG Orally Once a day 1 tablet HydrOXYzine HCl [facility] [address]-72 25 MG Orally every 8 hrs May 30, 2015 every 8 hours prn itching Maxalt [facility] 39456843265 10 MG Orally take at onset of headache 1 tablet as needed one time Colchicine [facility] [address]-69 0.6 MG Orally 2 times a day Jul 13, 2015 1 tablet Loratadine [facility] [address]-24 10 MG Orally Once a day Jul 13, 2015 1 tablet [place] Concentrate [facility] [address]-52 Orally not defined Elimite [facility] [address]-41 5 % Externally once May 30, 2015 as directed Atorvastatin Calcium [facility] [address]-10 40 MG Orally Once a day 1 tablet Incontinence Brief Large [facility] [address]-31 1 Apr 18, 2015 as directed Terazosin HCl [facility] [address]-19 1 MG Orally Once a day 1 capsule Azithromycin [facility] [address]-57 250 MG Orally Once a day Jun 11, 2015 Jun 16, 2015 2 tablets on the first day, then 1 tablet daily for 4 days Procedures Procedure Coding System Code Date Office Visit, Est Pt., Level 4 CPT-4 27015 Jun 11, 2015 Vital Signs Date/Time: Jun 11, 2015 Temperature 96.2 F Weight 251.2 lbs Height 64 in BMI 43.11 Index Blood Pressure Diastolic 80 mmHg Blood Pressure Systolic 130 mmHg Cardiac Monitoring Heart Rate 88 bpm Results No Known Results Summary Purpose eClinicalWorks Submission
--- OUTSIDE RECORDS SUMMARY | 2017-10-16 10:34 | XMS REPORT ---
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 Problem Depression F32.9 Active Medications Medication Code System Code Instructions Start Date End Date Status Dosage Uloric [facility] [address]-87 40 MG Orally 3 times a day Mar 27, 2015 1 tablet Venlafaxine HCl ER [facility] [address]-08 225 MG Orally Once a day Mar 27, 2015 1 tablet with food PredniSONE [facility] [address]-73 20 MG Orally Once a day Jun 11, 2015 Jun 20, 2015 2 tablet Divalproex Sodium [facility] [address]-58 500 MG Orally Once a day 1 tablet Xanax [facility] [address]-31 1 MG Orally Once a day May 17, 2015 1 tablet Loratadine [facility] [address]-09 10 MG Orally Once a day Jul 13, 2015 1 tablet Blood Press Monitor/M-L Cuff [facility] [address]447 1 Apr 18, 2015 as directed Terazosin HCl [facility] [address]-61 1 MG Orally Once a day 1 capsule Tessalon Perles [facility] [address]-49 100 MG Orally Three times a day 1 capsule as needed [place] Concentrate [facility] [address]-87 Orally not defined Pantoprazole Sodium [facility] [address]-72 40 MG Orally Once a day Mar 15, 2015 1 Amitriptyline HCl [facility] [address]-86 10 MG Orally Once a day 1 tablet Azithromycin [facility] [address]-06 250 MG Orally Once a day Jun 11, 2015 Jun 16, 2015 2 tablets on the first day, then 1 tablet daily for 4 days Allopurinol [facility] [address]-70 100 MG Orally 2 times a day Mar 30, 2015 1 tablet Promethazine-Codeine [facility] [address]-35 6.25-10 MG/5ML Orally every 6 hrs Jun 15, 2015 5 ml as needed Urocit-K 15 [facility] 85395778783 15 MEQ (1620 MG) Orally 2 times a day 1 tablet with meals Albuterol Sulfate [facility] [address]-59 (2.5 MG/3ML) 0.083% Inhalation Three times a day 3 ml Morphine Sulfate [facility] [address]-89 30 MG Orally 2 times a day Jun 15, 2015 1 tablet as needed Incontinence Brief Large [facility] [address]-73 1 Apr 18, 2015 as directed Zofran ODT [facility] [address]-18 4 MG Orally every 8 hrs Mar 15, 2015 1 tablet on the tongue and allow to dissolve Maxalt [facility] 10318395029 10 MG Orally take at onset of headache 1 tablet as needed one time Trimethoprim [facility] [address]-45 100 MG Orally Once a day 1 tablet Atorvastatin Calcium [facility] [address]-95 40 MG Orally Once a day 1 tablet Trimethobenzamide HCl [facility] [address]-30 300 MG Orally Three times a day 1 capsule as needed Ventolin HFA [facility] [address]-62 108 (90 Base) MCG/ACT Inhalation every 4 hrs 2 puffs as needed Procedures Procedure Coding System Code Date COMPLETE CBC W/AUTO DIFF WBC CPT-4 53923 Jun 15, 2015 COMPREHEN METABOLIC PANEL CPT-4 94809 Jun 15, 2015 Office Visit, Est Pt., Level 3 CPT-4 99718 Jun 15, 2015 No Charge CPT-4 59097 Jun 15, 2015 VENIPUNCT, ROUTINE* CPT-4 14764 Jun 15, 2015 Vital Signs Date/Time: Jun 15, 2015 Temperature 97.8 F Weight 255.0 lbs Height 64 in BMI 43.77 Index Blood Pressure Diastolic 90 mmHg Blood Pressure Systolic 140 mmHg Cardiac Monitoring Heart Rate 108 bpm Results Name Result Date Reference Range Unit Abnormality Flag ROUTINE VENIPUNCTURE Summary Purpose eClinicalWorks Submission
--- OUTSIDE RECORDS SUMMARY | 2017-10-16 10:34 | XMS REPORT ---
Author Author CRISTIAN LANDAVERDE [facility] eClinicalWorks Address Unknown Phone Unavailable Care Team Providers Care Manager In Training Name Role Phone CRISTIAN LANDAVERDE CP Unavailable [...]
--- OUTSIDE RECORDS SUMMARY | 2017-10-16 10:35 | XMS REPORT | Continuity of Care Document ---
Author Author [facility] Organization [facility] Address Unknown Phone Unavailable Allergies Active Description Code Type Severity Reaction Onset Reported/Identified Relationship to Patient Clinical Status Yes PHENOBARBITAL SODIUM SEVERE OTHER Yes SULFA (SULFONAMIDE ANTIBIOTICS) SEVERE DERMATOLOGICAL - HIV Yes ciprofloxacin [id number] Drug Allergy Unknown N/A 01/06/2015 Yes phenobarbital [id number] Drug Allergy Unknown N/A 01/06/2015 Yes Sulfa (Sulfonamide Antibiotics) [id number] Drug Allergy Unknown N/A 2014 Medications Medication Packaging Start Date Stop Date Route Dosage Sig D5 NORMAL SALINE 1000CC INJ (D5NS 1000CC IV BAG) ml 10/06/2017 10/13/2017 CONTINUOUSEVERY 0 Hour ONDANSETRON VIAL INJ 4 MG/2CC (ZOFRAN 2CC VIAL) MG 10/06/2017 10/06/2017 PRN ONCE Problems Date Dx Coded Attending Type Code Diagnosis Diagnosed By 01/06/2015 ASHLEY DODGE Ot 305.70 AMPHETAMINE ABUSE-UNSPEC 01/06/2015 ASHLEY DODGE Ot 592.0 CALCULUS OF KIDNEY 01/06/2015 ASHLEY DODGE Ot 599.0 URIN TRACT INFECTION NOS 01/06/2015 ASHLEY DODGE Ot 729.5 PAIN IN LIMB 01/06/2015 ASHLEY DODGE Ot V58.69 OTH MED,LT,CURRENT USE 01/15/2015 ASHLEY DODGE Ot 842.10 SPRAIN OF HAND NOS 01/15/2015 ASHLEY DODGE Ot 924.21 CONTUSION OF ANKLE 01/15/2015 ASHLEY DODGE Ot 959.7 LOWER LEG INJURY NOS 01/15/2015 ASHLEY DODGE Ot E000.8 OTHER EXTERNAL CAUSE STATUS 01/15/2015 ASHLEY DODGE Ot E884.3 FALL FROM WHEELCHAIR 01/30/2015 SANDRA JACOBO BATCH FREEZER OPERATOR Ot 590.80 PYELONEPHRITIS NOS 01/30/2015 SANDRA JACOBO BATCH FREEZER OPERATOR Ot 789.09 ABDOMINAL PAIN, OTHER SPECIFIED SITE 02/08/2015 GRIFFIN CAICEDO DO Ot 558.9 NONINF GASTROENTERIT NEC 02/08/2015 GRIFFIN CAICEDO DO Ot 599.72 MICROSCOPIC HEMATURIA 02/08/2015 GRIFFIN CAICEDO DO Ot 780.79 OTH MALAISE FATIGUE 04/22/2015 MARVIN FRAGA MD Ot M79.674 PAIN IN RIGHT TOE(S) 04/22/2015 MARVIN FRAGA MD Ot M79.675 PAIN IN LEFT TOE(S) 04/22/2015 MARVIN FRAGA MD Ot 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 04/25/2015 ASHLEY DODGE Ot F12.10 CANNABIS ABUSE, UNCOMPLICATED 04/25/2015 ASHLEY DODGE Ot F15.10 OTHER STIMULANT ABUSE, UNCOMPLICATED 04/25/2015 ASHLEY DODGE Ot F17.210 NICOTINE DEPENDENCE, CIGARETTES, UNCOMPL 04/25/2015 ASHLEY DODGE Ot N20.0 CALCULUS OF KIDNEY 04/25/2015 ASHLEY DODGE Ot R10.30 LOWER ABDOMINAL PAIN, UNSPECIFIED 04/25/2015 ASHLEY DODGE Ot Z90.49 ACQUIRED ABSENCE OF OTHER SPECIFIED PART 06/13/2015 Ot F11.10 OPIOID ABUSE , UNCOMPLICATED 06/13/2015 Ot F12.10 CANNABIS ABUSE, UNCOMPLICATED 06/13/2015 Ot F15.10 OTHER STIMULANT ABUSE, UNCOMPLICATED 06/13/2015 Ot F17.210 NICOTINE DEPENDENCE, CIGARETTES, UNCOMPL 06/13/2015 Ot J45.901 UNSPECIFIED ASTHMA WITH (ACUTE) EXACERBA 10/15/2015 ASHLEY DODGE Ot F17.210 NICOTINE DEPENDENCE, CIGARETTES, UNCOMPL 10/15/2015 ASHLEY DODGE Ot N20.0 CALCULUS OF KIDNEY 10/15/2015 ASHLEY DODGE Ot R31.9 HEMATURIA, UNSPECIFIED 10/18/2015 ASHLEY DODGE Ot F17.210 NICOTINE DEPENDENCE, CIGARETTES, UNCOMPL 10/18/2015 ASHLEY DODGE Ot N20.0 CALCULUS OF KIDNEY 10/18/2015 DAVI WATERS, ASHLEY Ruth Ot R31.9 HEMATURIA, UNSPECIFIED 10/06/2017 Brown, Josafat W 787.0 NAUSEA AND VOMITING 10/06/2017 Brown, Josafat W R11.2 NAUSEA WITH VOMITING, UNSPECIFIED 10/06/2017 Brown, Josafat W 787.0 NAUSEA AND VOMITING 10/06/2017 Brown, Josafat W R11.2 NAUSEA WITH VOMITING, UNSPECIFIED 10/06/2017 Brown, Josafat W 780.4 DIZZINESS AND GIDDINESS 10/06/2017 Brown, Josafat A 787.0 NAUSEA AND VOMITING 10/06/2017 Brown, Josafat A R11.2 NAUSEA WITH VOMITING, UNSPECIFIED 10/06/2017 Brown, Josafat W R42 DIZZINESS AND GIDDINESS Procedures There is no data. Results Test Result Range Comprehensive Metabolic Panel - 10/06/17 21:55 Albumin 3.8 g/dL 3.6-5.1 ALP 109 U/L 35-130 ALT 22 U/L 6-45 Anion Gap 14 6-14 AST 16 U/L 2-40 BUN 13 mg/dL 5-25 Calcium 9.4 mg/dL 8.3-10.4 Chloride 107 mmol/L 95-114 CO2 24 mEq/L 22-33 Creat 0.77 mg/dL 0.50-1.50 eGFR 80 mL/min/1.73m2 >59 Globulin 3.4 g/dL 2.3-3.5 Glucose 119 mg/dL 70-110 Osmo 292 280-295 Potassium 4.4 mmol/L 3.5-5.3 Sodium 141 mmol/L 134-148 TBil 0.2 mg/dL 0.2-1.2 TP 7.2 g/dL 6.0-8.3 Urinalysis - 10/06/17 21:59 Icotest N/A Negative Urine Crystals Amorphous material: abundant/HPF Urine Volume Urine Volume Sufficient (10mL) Urine-Appearance Slightly Cloudy Clear Urine-Bacteria Trace Urine-Bilirubin Negative Negative Urine-Blood Trace-intact Negative Urine-Color Yellow Colorless-Lt. Yellow Urine-Epithelial Cells 5-10/HPF Urine-Glucose Negative Negative Urine-Ketones Negative Negative Urine-Leukocytes Negative Negative Urine-Nitrite Negative Negative Urine-Other Urine Saved if Culture Needed (48hrs from time of collection) Urine-pH 7.0 5-8.5 Urine-Protein Negative Negative Urine-RBC 0-2/HPF Urine-Specific [place] 1.015 1.000-1.030 Urine-WBC 0-2/HPF Urobilinogen 0.2 0.2-1.0 Complete blood count (CBC) with automated white blood cell (WBC) differential - 10/14/17 22:22 Blood leukocytes automated count (number/volume) 15.2 10*3/uL 4.3-11.0 Blood erythrocytes automated count (number/volume) 4.86 10*6/uL 4.35-5.85 Venous blood hemoglobin measurement (mass/volume) 14.4 g/dL 11.5-16.0 Blood hematocrit (volume fraction) 44 % 35-52 Automated erythrocyte mean corpuscular volume 90 [foz_us] 80-99 Automated erythrocyte mean corpuscular hemoglobin (mass per erythrocyte) 30 pg 25-34 Automated erythrocyte mean corpuscular hemoglobin concentration measurement ( mass/volume) 33 g/dL 32-36 Automated erythrocyte distribution width ratio 13.6 % 10.0-14.5 Automated blood platelet count (count/volume) 324 10*3/uL 130-400 Automated blood platelet mean volume measurement 9.2 [foz_us] 7.4-10.4 Automated blood neutrophils/100 leukocytes 52 % 42-75 Automated blood lymphocytes/100 leukocytes 34 % 12-44 Blood monocytes/100 leukocytes 8 % 0-12 Automated blood eosinophils/100 leukocytes 6 % 0-10 Automated blood basophils/100 leukocytes 1 % 0-10 Blood neutrophils automated count (number/volume) 7.9 10*3 1.8-7.8 Blood lymphocytes automated count (number/volume) 5.1 10*3 1.0-4.0 Blood monocytes automated count (number/volume) 1.2 10*3 0.0-1.0 Automated eosinophil count 1.0 10*3/uL 0.0-0.3 Automated blood basophil count (count/volume) 0.1 10*3/uL 0.0-0.1 PT panel in platelet poor plasma by coagulation assay - 10/14/17 22:22 Prothrombin time (PT) in platelet poor plasma by coagulation assay 11.8 s 12.2-14.7 INR in platelet poor plasma or blood by coagulation assay 0.9 0.8-1.4 Activated partial thromboplastin time (aPTT) in platelet poor plasma bycoagulation assay - 10/14/17 22:22 Activated partial thromboplastin time (aPTT) in platelet poor plasma bycoagulation assay 25 s 24-35 Serum or plasma choriogonadotropin ( test) detection - 10/14/17 22:22 Serum or plasma choriogonadotropin ( test) detection NEGATIVE NEGATIVE Comprehensive metabolic panel - 10/14/17 22:22 Serum or plasma sodium measurement (moles/volume) 140 mmol/L 135-145 Serum or plasma potassium measurement (moles/volume) 4.3 mmol/L 3.6-5.0 Serum or plasma chloride measurement (moles/volume) 107 mmol/L 98-107 Carbon dioxide 21 mmol/L 21-32 Serum or plasma anion gap determination (moles/volume) 12 mmol/L 5-14 Serum or plasma urea nitrogen measurement (mass/volume) 15 mg/dL 7-18 Serum or plasma creatinine measurement (mass/volume) 0.82 mg/dL 0.60-1.30 Serum or plasma urea nitrogen/creatinine mass ratio 18 NRG Serum or plasma creatinine measurement with calculation of estimated glomerular filtration rate > NRG Serum or plasma glucose measurement (mass/volume) 120 mg/dL 70-105 Serum or plasma calcium measurement (mass/volume) 8.8 mg/dL 8.5-10.1 Serum or plasma total bilirubin measurement (mass/volume) 0.2 mg/dL 0.1-1.0 Serum or plasma alkaline phosphatase measurement (enzymatic activity/volume) 82 U/L 40-136 Serum or plasma aspartate aminotransferase measurement (enzymatic activity/ volume) 14 U/L 5-34 Serum or plasma alanine aminotransferase measurement (enzymatic activity/volume ) 23 U/L 0-55 Serum or plasma protein measurement (mass/volume) 7.0 g/dL 6.4-8.2 Serum or plasma albumin measurement (mass/volume) 3.7 g/dL 3.2-4.5 Magnesium - 10/14/17 22:22 Magnesium 1.9 mg/dL 1.8-2.4 Blood manual differential performed detection - 10/14/17 22:22 Blood monocytes/100 leukocytes 2 % NRG Manual blood segmented neutrophils/100 leukocytes 45 % NRG Blood band neutrophils/100 leukocytes 0 % NRG Manual blood lymphocytes/100 leukocytes 44 % NRG Manual eosinophils/100 leukocytes in nose 9 % NRG Manual blood basophils/100 leukocytes 0 % NRG Blood erythrocyte morphology finding identification NORMAL NRG Serum or plasma lithium measurement (moles/volume) - 10/14/17 22:22 BNP level < pg/mL <100.0 Serum or plasma troponin i.cardiac measurement (mass/volume) - 10/14/17 22:22 Serum or plasma troponin i.cardiac measurement (mass/volume) < ng/ mL <0.30 Blood lactic acid measurement (moles/volume) - 10/14/17 22:30 Blood lactic acid measurement (moles/volume) 1.51 mmol/L 0.50-2.00 Bacterial blood culture - 10/14/17 22:30 QUANTITY OF GROWTH . NRG Bacterial blood culture SEE COMMEN NRG Urine drug screening test - 10/14/17 22:40 Urine phencyclidine detection by screening method NEGATIVE NEGATIVE Urine benzodiazepines detection by screening method NEGATIVE NEGATIVE Urine cocaine detection NEGATIVE NEGATIVE Urine amphetamines detection by screening method NEGATIVE NEGATIVE Urine methamphetamine detection by screening method NEGATIVE NEGATIVE Urine cannabinoids detection by screening method NEGATIVE NEGATIVE Urine opiates detection by screening method NEGATIVE NEGATIVE Urine barbiturates detection NEGATIVE NEGATIVE Screening urine tricyclic antidepressants detection NEGATIVE NEGATIVE Urine methadone detection by screening method NEGATIVE NEGATIVE Urine oxycodone detection NEGATIVE NEGATIVE Urine propoxyphene detection NEGATIVE NEGATIVE Complete urinalysis with reflex to culture - 10/14/17 22:40 Urine color determination YELLOW NRG Urine clarity determination CLEAR NRG Urine pH measurement by test strip 6 5-9 Specific gravity of urine by test strip 1.015 1.016- 1.022 Urine protein assay by test strip, semi-quantitative NEGATIVE NEGATIVE Urine glucose detection by automated test strip NEGATIVE NEGATIVE Erythrocytes detection in urine sediment by light microscopy NEGATIVE NEGATIVE Urine ketones detection by automated test strip NEGATIVE NEGATIVE Urine nitrite detection by test strip NEGATIVE NEGATIVE Urine total bilirubin detection by test strip NEGATIVE NEGATIVE Urine urobilinogen measurement by automated test strip (mass/volume) NORMAL NORMAL Urine leukocyte esterase detection by dipstick NEGATIVE NEGATIVE Automated urine sediment erythrocyte count by microscopy (number/high power field) [HPF] NRG Automated urine sediment leukocyte count by microscopy (number/high power field ) RARE NRG Bacteria detection in urine sediment by light microscopy NEGATIVE NRG Squamous epithelial cells detection in urine sediment by light microscopy 2-5 NRG Crystals detection in urine sediment by light microscopy NONE NRG Casts detection in urine sediment by light microscopy NONE NRG Mucus detection in urine sediment by light microscopy NEGATIVE NRG Complete urinalysis with reflex to culture NO NRG Bacterial blood culture - 10/14/17 23:55 Bacterial blood culture NG [facility] Comprehensive metabolic panel - 10/15/17 05:25 Serum or plasma sodium measurement (moles/volume) 138 mmol/L 135-145 Serum or plasma potassium measurement (moles/volume) 4.0 mmol/L 3.6-5.0 Serum or plasma chloride measurement (moles/volume) 104 mmol/L 98-107 Carbon dioxide 15 mmol/L 21-32 Serum or plasma anion gap determination (moles/volume) 19 mmol/L 5-14 Serum or plasma urea nitrogen measurement (mass/volume) 16 mg/dL 7-18 Serum or plasma creatinine measurement (mass/volume) 1.08 mg/dL 0.60-1.30 Serum or plasma urea nitrogen/creatinine mass ratio 15 NRG Serum or plasma creatinine measurement with calculation of estimated glomerular filtration rate 54 NRG Serum or plasma glucose measurement (mass/volume) 386 mg/dL 70-105 Serum or plasma calcium measurement (mass/volume) 9.3 mg/dL 8.5-10.1 Serum or plasma total bilirubin measurement (mass/volume) 0.2 mg/dL 0.1-1.0 Serum or plasma alkaline phosphatase measurement (enzymatic activity/volume) 88 U/L 40-136 Serum or plasma aspartate aminotransferase measurement (enzymatic activity/ volume) 13 U/L 5-34 Serum or plasma alanine aminotransferase measurement (enzymatic activity/volume ) 25 U/L 0-55 Serum or plasma protein measurement (mass/volume) 7.3 g/dL 6.4-8.2 Serum or plasma albumin measurement (mass/volume) 4.0 g/dL 3.2-4.5 Complete blood count (CBC) with automated white blood cell (WBC) differential - 10/15/17 05:35 Blood leukocytes automated count (number/volume) 16.4 10*3/uL 4.3-11.0 Blood erythrocytes automated count (number/volume) 4.72 10*6/uL 4.35-5.85 Venous blood hemoglobin measurement (mass/volume) 14.4 g/dL 11.5-16.0 Blood hematocrit (volume fraction) 43 % 35-52 Automated erythrocyte mean corpuscular volume 91 [foz_us] 80-99 Automated erythrocyte mean corpuscular hemoglobin (mass per erythrocyte) 31 pg 25-34 Automated erythrocyte mean corpuscular hemoglobin concentration measurement ( mass/volume) 34 g/dL 32-36 Automated erythrocyte distribution width ratio 13.5 % 10.0-14.5 Automated blood platelet count (count/volume) 288 10*3/uL 130-400 Automated blood platelet mean volume measurement 9.7 [foz_us] 7.4-10.4 Automated blood neutrophils/100 leukocytes 89 % 42-75 Automated blood lymphocytes/100 leukocytes 9 % 12-44 Blood monocytes/100 leukocytes 1 % 0-12 Automated blood eosinophils/100 leukocytes 1 % 0-10 Automated blood basophils/100 leukocytes 0 % 0-10 Blood neutrophils automated count (number/volume) 14.6 10*3 1.8-7.8 Blood lymphocytes automated count (number/volume) 1.4 10*3 1.0-4.0 Blood monocytes automated count (number/volume) 0.2 10*3 0.0-1.0 Automated eosinophil count 0.1 10*3/uL 0.0-0.3 Automated blood basophil count (count/volume) 0.0 10*3/uL 0.0-0.1 Encounters ACCT No. Visit Date/Time Discharge Status Pt. Type Provider Facility Loc./Unit Complaint [id number] 10/15/2015 20:40:00 10/15/2015 23:34:00 DIS Emergency ASHLEY DODGE [facility] ER [id number] 04/25/2015 16:09:00 04/25/2015 19:26:00 DIS Emergency AHSLEY DODGE [facility] ER [id number] 04/22/2015 20:43:00 04/22/2015 23:20:00 DIS Emergency MARVIN FRAGA MD [facility] ER [id number] 02/08/2015 17:34:00 02/08/2015 22:40:00 DIS Emergency GRIFFIN CAICEDO DO [facility] ER [id number] 01/30/2015 16:11:00 01/30/2015 17:58:00 DIS Emergency SANDRA JACOBO APRN [facility] ER [id number] 01/15/2015 20:01:00 01/15/2015 23:03:00 DIS Emergency ASHLEY DODGE [facility] ER [id number] 01/06/2015 19:44:00 01/06/2015 22:47:00 DIS Emergency ASHLEY DODGE [facility] ER [id number] 10/14/2017 22:45:00 Document Registration [id number] 06/13/2015 18:07:00 Document Registration [id number] 09/12/2017 14:50:00 09/12/2017 23:59:59 [facility] [id number] 10/06/2017 20:58:00 10/06/2017 23:13:00 [id number] 10/06/2017 21:44:23 Document Registration
== END 2017-10-15 10:54 | disposition home or self-care (01) ==
LOC: EDUNIT# 21:35 → ER 21:38 → 4TH 21:39 → UNDOADMOB 10-15 → 4TH 10-15 → UNDODISOB 10-15 11:35
PROVIDERS: ADMIT Internal Medicine; ATTEND Internal Medicine
DX: J18.9 Pneumonia, unspecified organism (principal); R09.02 Hypoxemia; J44.0 Chronic obstructive pulmonary disease with (acute) lower respiratory infection; F17.210 Nicotine dependence, cigarettes, uncomplicated; J45.21 Mild intermittent asthma with (acute) exacerbation
CPT/HCPCS: 36415; 71046; 80053; 80306; 81000; 83605; 83735; 83880; 84484; 84703; 85007; 85025; 85027; 85610; 85730; 87040; 87077; 93005; 93041; 94640; 94664; 94760; 96365; 96375; G0378

== ENCOUNTER 2017-11-03 10:57 | Emergency (ER) | payer MEDICAID ==
[~2017-11-03] VITALS: Ht 157.5 cm; Wt 113.4 kg
[~2017-11-03 10:57] MED LIST changes: +ALBU6.7H8 INH; +AZIT250T12 PO; +CEFD300C3 PO; +PRED10TA22 PO
--- OUTSIDE RECORDS SUMMARY | 2017-11-03 11:10 | XMS REPORT | Continuity of Care Document ---
Author Author [facility] Organization [facility] Address Unknown Phone Unavailable Allergies Active Description Code Type Severity Reaction Onset Reported/Identified Relationship to Patient Clinical Status Yes PHENOBARBITAL SODIUM SEVERE OTHER Yes SULFA (SULFONAMIDE ANTIBIOTICS) SEVERE DERMATOLOGICAL - HIV Yes ciprofloxacin [id number] Drug Allergy Unknown N/A 01/06/2015 Yes phenobarbital [id number] Drug Allergy Unknown N/A 01/06/2015 Yes Sulfa (Sulfonamide Antibiotics) [id number] Drug Allergy Unknown N/A 2014 Medications Medication [...] E884.3 FALL FROM WHEELCHAIR 01/30/2015 SANDRA JACOBO WOOL FLEECE GRADER Ot 590.80 PYELONEPHRITIS NOS 01/30/2015 SANDRA JACOBO WOOL FLEECE GRADER Ot 789.09 ABDOMINAL PAIN, OTHER SPECIFIED SITE [...] Ot N20.0 CALCULUS OF KIDNEY 10/18/2015 DAVI WATERS ASHLEY Ruth Ot R31.9 HEMATURIA, UNSPECIFIED 10/06/2017 [...] Brown, Josafat W R42 DIZZINESS AND GIDDINESS 10/15/2017 KAITLYNN HENDRIX DO Ot F17.210 NICOTINE DEPENDENCE, CIGARETTES, UNCOMPL 10/15/2017 KAITLYNN HENDRIX DO Ot J18.9 PNEUMONIA, UNSPECIFIED ORGANISM 10/15/2017 KAITLYNN HENDRIX DO Ot J44.0 CHRONIC OBSTRUCTIVE PULMON DISEASE W ACU 10/15/2017 KAITLYNN HENDRIX DO Ot J45.21 MILD INTERMITTENT ASTHMA WITH (ACUTE) EX 10/15/2017 KAITLYNN HENDRIX DO Ot R09.02 HYPOXEMIA Procedures There is no data. Results Test [...] 5-8.5 Urine-Protein Negative Negative Urine-RBC 0-2/HPF Urine-Specific [place] 1.015 1.000-1.030 Urine-WBC 0-2/HPF Urobilinogen 0.2 0.2-1.0 [...] - 10/14/17 23:55 Bacterial blood culture NG NRG Comprehensive metabolic panel - 10/15/17 05:25 Serum [...] Status Pt. Type Provider Facility Loc./Unit Complaint [id number] 10/14/2017 21:39:00 10/15/2017 10:54:00 DIS Outpatient KAITLYNN HENDRIX DO [facility] 4TH PNEUMONIA [id number] 10/15/2015 20:40:00 10/15/2015 23:34:00 DIS Emergency ASHLEY DODGE [facility] ER BLOOD IN URINE/L FLANK PAIN [id number] 04/25/2015 16:09:00 04/25/2015 19:26:00 DIS Emergency ASHLYE DODGE [facility] ER KIDNEY PAIN [id number] 04/22/2015 20:43:00 04/22/2015 23:20:00 DIS Emergency MARVIN FRAGA MD [facility] ER GOUT [id number] 02/08/2015 17:34:00 02/08/2015 22:40:00 DIS Emergency GRIFFIN CAICEDO DO [facility] ER [id number] 01/30/2015 16:11:00 01/30/2015 17:58:00 DIS Emergency SANDRA JACOBO APRN [facility] ER [id number] 01/15/2015 20:01:00 01/15/2015 23:03:00 DIS Emergency ASHLEY DODGE [facility] ER [id number] 01/06/2015 19:44:00 01/06/2015 22:47:00 DIS Emergency ASHLEY DODGE [facility] ER [id number] 06/13/2015 18:07:00 Document Registration [id number] 10/13/2017 09:40:00 10/13/2017 23:59:59 CLS Outpatient DIPAK LOYA APRN [facility] [id number] 10/06/2017 20:58:00 10/06/2017 23:13:00 [id number] 10/06/2017 21:44:23 Document Registration
--- NOTE | 2017-11-03 11:11 | ED Headache ---
General Chief Complaint: Head/Cervical Problems Stated Complaint: MIGRAINE History of Present Illness Date Seen by Provider: Nov 03, 2017 Time Seen by Provider: 11:07 Initial Comments Patient is a 47-year-old female who presents to emergency room with complaints of a migraine. She reports having 3-4 migraines a month and that this is very similar to the other migraines. She reports taking Maxalt for her other migraines and took it for this one but it did not help. Timing/Duration: 1-3 hours Severity/Quality: moderate Location: temporal Prior Headaches/Recent Trauma: frequent headaches Modifying Factors: worse with exposure to light Associated Symptoms: No nausea/vomiting Allergies and Home Medications Allergies Coded Allergies: Sulfa (Sulfonamide Antibiotics) (Unverified Allergy, Unknown, 01/06/15) ciprofloxacin (Unverified Allergy, Unknown, 01/06/15) phenobarbital (Unverified Allergy, Unknown, 01/06/15) Home Medications Albuterol Sulfate 6.7 Gm Hfa.aer.ad, 2 PUFF INH Q4H PRN for SHORTNESS OF BREATH, (Reported) Benzonatate 200 Mg Capsule, 200 MG PO TID PRN for COUGH, (Reported) #21 FILLED 10-08-17 Cefdinir 300 Mg Capsule, 300 MG PO BID Prescribed by: KAITLYNN HENDRIX on 10/15/17 105 Prednisone 10 Mg Tab.ds.pk, 10 MG PO DAILY Take 6 tabs(60mg)daily,decrease by 1 tab(10MG)daily. Prescribed by: KAITLYNN HENDRIX on 10/15/17 1054 Patient Home Medication List Home Medication List Reviewed: Yes Review of Systems Constitutional: see HPI; No chills, No diaphoresis Eyes: See HPI, Photophobia Ears, Nose, Mouth, Throat: see HPI; denies ear pain, denies ear discharge Respiratory: see HPI; No short of breath, No wheezing Cardiovascular: see HPI; No chest pain, No palpitations Gastrointestinal: see HPI; No nausea, No vomiting Genitourinary: see HPI; No decreased output, No discharge : Yes Musculoskeletal: see HPI; No back pain, No gout Skin: see HPI; No change in color, No change in hair/nails Psychiatric/Neurological: See HPI; Denies Anxiety, Denies Depressed All Other Systems Reviewed Negative Unless Noted: Yes Past Eqwdrzh-Cvhdsj-Xerzzz Hx Past Med/Social Hx: Reviewed Nursing Past Med/Soc Hx Patient Social History Drug of Choice: METH, THC--DENIES IV USE Type Used: Cigarettes 2nd Hand Smoke Exposure: Yes Recent Foreign Travel: No Contact w/Someone Who Travel: No Recent Hopitalizations: No Immunizations Up To Date PED Vaccines UTD: No Date of Pneumonia Vaccine: May 18, 2010 Date of Influenza Vaccine: Feb 21, 2015 Seasonal Allergies Seasonal Allergies: Yes Past Medical History Surgeries: Yes (D&C X 2; KIDNEY STONE REMOVAL) Adenoidectomy, Appendectomy, Gallbladder, Renal, Tonsillectomy Respiratory: Yes Asthma, COPD Currently Using CPAP: No Currently Using BIPAP: No Cardiac: Yes High Cholesterol Neurological: Yes ("CHRONIC MIGRAINES") Headaches /Migraines Reproductive Disorders: No Female Reproductive Disorders: Denies Sexually Transmitted Disease: No HIV/AIDS: No Genitourinary: Yes Kidney Stones, UTI-Chronic Gastrointestinal: Yes Gastroesophageal Reflux Musculoskeletal: Yes (PT STATES "MYOPATHY OF MY MID SECTION" ON 10/14/17) Chronic Back Pain, Gout Endocrine: No HEENT: No Cancer: No Psychosocial: Yes Anxiety, Depression Integumentary: No Blood Disorders: No Adverse Reaction/Blood Tranf: No Family Medical History Reviewed Nursing Family Hx Patient reports no known family medical history. No Pertinent Family Hx Physical Exam Vital Signs Vital Signs - First Documented 11/03/17 11:00 Temp 97.8 Pulse 105 Resp 14 B/P (MAP) 141/97 (112) O2 Delivery Room Air Capillary Refill : General Appearance: WD/WN, no apparent distress HEENT: normal ENT inspection, TMs normal Neck: non-tender, full range of motion Cardiovascular: regular rate, rhythm, no edema Respiratory: chest non-tender, lungs clear, normal breath sounds, no respiratory distress Gastrointestinal: normal bowel sounds, non tender, soft Back: normal inspection, no CVA tenderness, no vertebral tenderness Extremities: normal range of motion, non-tender, normal inspection Psychiatric: alert, oriented x 3 Cra[place] Nerves: normal hearing, normal speech, PERRL Coordination/Gait: normal finger to nose, normal gait Motor/Sensory: no motor deficit, no sensory deficit, no pronator drift, other ( She describes this migraine is very similar to other migraines but it did not respond her Maxalt medication. She said has presented just like her other migraines.) Skin: normal color, warm/dry Lymphatic: no adenopathy Progress/Results/Core Measures Results/Orders My Orders Orders - SANDRA JACOBO APRN Ketorolac Injection (Toradol Injection) (11/03/17 11:15) Prochlorperazine Injection (Compazine In (11/03/17 11:15) Diphenhydramine Injection (Benadryl Inje (11/03/17 11:15) Medications Given in ED Current Medications Medications Dose Ordered Sig/Caio Route Start Time Stop Time Status Last Admin Dose Admin Diphenhydramine HCl 50 mg ONCE ONCE IM 11/03/17 11:15 11/03/17 11:16 DC 11/03/17 11:28 50 MG Ketorolac Tromethamine 60 mg ONCE ONCE IM 11/03/17 11:15 11/03/17 11:16 DC 11/03/17 11:23 60 MG Prochlorperazine Edisylate 10 mg ONCE ONCE IM 11/03/17 11:15 11/03/17 11:16 DC 11/03/17 11:24 10 MG Vital Signs/I&O 11/03/17 11:00 Temp 97.8 Pulse 105 Resp 14 B/P (MAP) 141/97 (112) O2 Delivery Room Air Departure Impression Primary Impression: Headache Disposition: 01 HOME, SELF-CARE Condition: Stable Departure-Patient Inst. Decision time for Depature: 11:44 Referrals: [facility] (PCP/Family) Primary Care Physician Patient Instructions: Headache, Adult (DC) SANDRA JACOBO APRN Nov 03, 2017 11:11
[2017-11-03] MEDS ORDERED: KETOROLAC 60 MG/2 ML VIAL IM ONE (11:15)
[2017-11-03] MEDS ORDERED: diphenhydrAMINE 50 MG/ML INJ (BENADRYL) IM ONE (11:15)
[2017-11-03] MEDS ORDERED: PROCHLORPERAZINE 10 MG/2ML INJ (COMPAZINE) IM ONE (11:15)
[2017-11-03 11:49] VITALS: BP 152/111
== END 2017-11-03 11:49 | disposition home or self-care (01) ==
LOC: EDUNIT# 10:57 → ER 10:58
DX: R51 Headache (principal); J44.9 Chronic obstructive pulmonary disease, unspecified; E78.00 Pure hypercholesterolemia, unspecified; K21.9 Gastro-esophageal reflux disease without esophagitis; M06.9 Rheumatoid arthritis, unspecified; F41.9 Anxiety disorder, unspecified; F32.9 Major depressive disorder, single episode, unspecified; Z77.22 Contact with and (suspected) exposure to environmental tobacco smoke (acute) (chronic); Z87.59 Personal history of other complications of pregnancy, childbirth and the puerperium; Z87.442 Personal history of urinary calculi; Z90.89 Acquired absence of other organs; Z90.49 Acquired absence of other specified parts of digestive tract; Z79.52 Long term (current) use of systemic steroids; Z88.2 Allergy status to sulfonamides; Z88.1 Allergy status to other antibiotic agents
CPT/HCPCS: 96372; 99284

== ENCOUNTER 2022-05-11 13:08 | Emergency (ER) | payer MEDICAID ==
[~2022-05-11] VITALS: Ht 165 cm; Wt 113.0 kg
[~2022-05-11 13:08] MED LIST changes: +ACHYD1T PO; +ALBU6.7H13 INH; -ALBU6.7H8 INH; -AMIT10TA6 PO; +AMT10T PO; +CEFA-28 PO; -CEFA500C8 PO; -HYDR-3820 PO; +INDO50SU RC; -INDO50SU2 RC; +MORP30CA13 PO; -MORP30CA16 PO; +OMEP20TA56 PO; -OMEP20TA7 PO; +TERA5CAP10 PO; -TERA5CAP3 PO; -TRIM300C23 PO; +[UNRECOGNIZED DRUG - CODE] PO
[2022-05-11 13:28] LABS: BILIRUBIN,URINE NEGATIVE (NEGATIVE); CLARITY,URINE CLEAR; COLOR,URINE YELLOW; GLUCOSE, URINE (UA) 3+ (NEGATIVE); KETONES,URINE NEGATIVE (NEGATIVE); LEUKOCYTE ESTERASE ,URINE NEGATIVE (NEGATIVE); NITRITE,URINE NEGATIVE (NEGATIVE); PH,URINE 5.5 (5-9); PROTEIN,URINE NEGATIVE (NEGATIVE)
[2022-05-11] MEDS ORDERED: NS IV 1000 ML 1,000 ML IV SCH (13:30)
--- NOTE | 2022-05-11 13:30 | ED General ---
General Chief Complaint: Glucose Problems Stated Complaint: HIGH BLOOD SUGAR Nursing Triage Note: Pt to ed with c/o nausea, high blood sugar in the 500s, some tightness in chest. states she only takes po diabetic medications at home, does not take insulin. Source of Information: Patient Exam Limitations: No Limitations History of Present Illness Date Seen by Provider: May 11, 2022 Time Seen by Provider: 13:22 Initial Comments 52-year-old female type II diabetic presents for elevated blood sugars. She states after 30 blood sugar in the 560 range. Last night she did notice some increased thirst. When she woke up she had some pressure on her chest anteriorly. There is no radiation, no obvious aggravating alleviating factors and has been constant since onset. Mild. No cardiac history. No changes in bowel or bladder habits. No abdominal pain. No cough or fevers. Allergies and Home Medications Allergies Coded Allergies: Sulfa (Sulfonamide Antibiotics) (Unverified Allergy, Unknown, 01/06/15) ciprofloxacin (Unverified Allergy, Unknown, 01/06/15) phenobarbital (Unverified Allergy, Unknown, 01/06/15) Patient Home Medication List Home Medication List Reviewed: Yes Albuterol Sulfate (Proventil Hfa) 6.7 Gm Hfa.aer.ad, 2 PUFF INH Q4H PRN for SHORTNESS OF BREATH, (Reported) Entered as Reported by: FARIDEH WALKER on 10/14/17 2232 Benzonatate (Benzonatate) 200 Mg Capsule, 200 MG PO TID PRN for COUGH, (Reported) Entered as Reported by: BRII FELIX on 10/15/17 1050 Cefdinir (Cefdinir) 300 Mg Capsule, 300 MG PO BID Prescribed by: KAITLYNN HENDRIX on 10/15/17 1054 Ondansetron (Ondansetron Odt) 8 Mg Tab.rapdis, 8 MG SL Q6H PRN for NAUSEA/VOMITING Prescribed by: HARRISON GONZALEZ MD on 05/11/22 1421 Prednisone (Prednisone) 10 Mg Tab.ds.pk, 10 MG PO DAILY Prescribed by: KAITLYNN HENDRIX on 10/15/17 1054 Review of Systems Review of Systems Constitutional: no symptoms reported EENTM: no symptoms reported Respiratory: no symptoms reported Cardiovascular: chest pain Gastrointestinal: no symptoms reported Genitourinary: no symptoms reported Musculoskeletal: no symptoms reported Skin: no symptoms reported Psychiatric/Neurological: No Symptoms Reported Hematologic/Lymphatic: No Symptoms Reported Immunological/Allergic: no symptoms reported Past Zbipzel-Ahiimv-Hapnaq Hx Patient Social History Tobacco Use?: Yes Tobacco type used: Cigarettes Smoking Status: Current Everyday Smoker Substance use?: No Alcohol Use?: No Immunizations Up To Date Tetanus Booster (TDap): Unknown PED Vaccines UTD: No Influenza Vaccine Up-to-Date: No; Not Current Seasonal Allergies Seasonal Allergies: No Past Medical History Surgeries: No Adenoidectomy, Appendectomy, Gallbladder, Renal, Tonsillectomy Respiratory: No Asthma, COPD Currently Using CPAP: No Currently Using BIPAP: No Cardiac: No High Cholesterol Neurological: Yes Headaches /Migraines Reproductive Disorders: No Female Reproductive Disorders: Denies Sexually Transmitted Disease: No HIV/AIDS: No Genitourinary: Yes Kidney Stones Gastrointestinal: Yes Gastroesophageal Reflux Musculoskeletal: No Chronic Back Pain, Gout Endocrine: No HEENT: No Cancer: No Psychosocial: No Anxiety, Depression Integumentary: No Blood Disorders: No Adverse Reaction/Blood Tranf: No Family Medical History Reviewed Nursing Family Hx Patient reports no known family medical history. No Pertinent Family Hx Physical Exam Vital Signs Vital Signs - First Documented 05/11/22 13:14 Temp 35.9 Pulse 111 Resp 20 B/P (MAP) 153/91 (111) Pulse Ox 94 Capillary Refill : Less Than 3 Seconds Height, Weight, BMI Height: 5'2.00" Weight: 250lbs. 4.8oz. [id number]; 41.00 BMI Method:Stated General Appearance: No Apparent Distress, WD/WN HEENT: Normal ENT Inspection, Pharynx Normal Neck: Full Range of Motion, Normal Inspection, Non Tender, Supple Respiratory: Chest Non Tender, Lungs Clear, Normal Breath Sounds, No Accessory Muscle Use, No Respiratory Distress Cardiovascular: Regular Rate, Rhythm, No Edema, No Gallop, No JVD, No Murmur, Normal Peripheral Pulses Gastrointestinal: Normal Bowel Sounds, No Organomegaly, No Pulsatile Mass, Non Tender, Soft Extremity: Normal Capillary Refill, Normal Inspection, Normal Range of Motion, Non Tender, No Calf Tenderness, No Pedal Edema Neurologic/Psychiatric: Alert, Oriented x3, Normal Mood/Affect Skin: Normal Color, Warm/Dry Progress/Results/Core Measures Suspected Sepsis SIRS Temperature: Pulse: 111 Respiratory Rate: 20 Laboratory Tests 05/11/22 13:26: White Blood Count 14.4H Blood Pressure 153 /91 Mean: 111 Laboratory Tests 05/11/22 13:26: Creatinine 1.01, Platelet Count 339, Total Bilirubin 0.3 Results/Orders Lab Results Laboratory Tests Test 05/11/22 13:22 05/11/22 13:23 05/11/22 13:26 Range/Units Urine Color YELLOW Urine Clarity CLEAR Urine pH 5.5 5-9 Urine Specific [place] 1.015 L 1.016-1.022 Urine Protein NEGATIVE NEGATIVE Urine Glucose (UA) 3+ H NEGATIVE Urine Ketones NEGATIVE NEGATIVE Urine Nitrite NEGATIVE NEGATIVE Urine Bilirubin NEGATIVE NEGATIVE Urine Urobilinogen 0.2 < = 1.0 MG/DL Urine Leukocyte Esterase NEGATIVE NEGATIVE Urine RBC (Auto) NEGATIVE NEGATIVE Urine RBC NONE /HPF Urine WBC RARE /HPF Urine Squamous Epithelial Cells NONE /HPF Urine Crystals NONE /LPF Urine Bacteria NEGATIVE /HPF Urine Casts NONE /LPF Urine Mucus NEGATIVE /LPF Urine Yeast FEW H /HPF Urine Culture Indicated YES Glucometer 256 H 70-110 MG/DL White Blood Count 14.4 H 4.3-11.0 10^3/uL Red Blood Count 5.31 H 3.80-5.11 10^6/uL Hemoglobin 16.2 H 11.5-16.0 g/dL Hematocrit 48 35-52 % Mean Corpuscular Volume 91 80-99 fL Mean Corpuscular Hemoglobin 31 25-34 pg Mean Corpuscular Hemoglobin Concent 34 32-36 g/dL Red Cell Distribution Width 13.2 10.0-14.5 % Platelet Count 339 130-400 10^3/uL Mean Platelet Volume 9.5 9.0-12.2 fL Immature Granulocyte % (Auto) 1 % Neutrophils (%) (Auto) 60 42-75 % Lymphocytes (%) (Auto) 27 12-44 % Monocytes (%) (Auto) 8 0-12 % Eosinophils (%) (Auto) 4 0-10 % Basophils (%) (Auto) 1 0-10 % Neutrophils # (Auto) 8.6 H 1.8-7.8 10^3/uL Lymphocytes # (Auto) 3.9 1.0-4.0 10^3/uL Monocytes # (Auto) 1.1 H 0.0-1.0 10^3/uL Eosinophils # (Auto) 0.6 H 0.0-0.3 10^3/uL Basophils # (Auto) 0.1 0.0-0.1 10^3/uL Immature Granulocyte # (Auto) 0.1 0.0-0.1 10^3/uL Neutrophils % (Manual) 61 % Lymphocytes % (Manual) 31 % Monocytes % (Manual) 5 % Eosinophils % (Manual) 3 % Basophils % (Manual) 0 % Band Neutrophils 0 % Blood Morphology Comment NORMAL Sodium Level 139 135-145 MMOL/L Potassium Level 4.1 3.6-5.0 MMOL/L Chloride Level 103 98-107 MMOL/L Carbon Dioxide Level 21 21-32 MMOL/L Anion Gap 15 H 5-14 MMOL/L Blood Urea Nitrogen 16 7-18 MG/DL Creatinine 1.01 0.60-1.30 MG/DL Estimat Glomerular Filtration Rate 67 BUN/Creatinine Ratio 16 Glucose Level 251 H 70-105 MG/DL Calcium Level 9.5 8.5-10.1 MG/DL Corrected Calcium 9.5 8.5-10.1 MG/DL Total Bilirubin 0.3 0.1-1.0 MG/DL Aspartate Amino Transf (AST/SGOT) 14 5-34 U/L Alanine Aminotransferase (ALT/SGPT) 20 0-55 U/L Alkaline Phosphatase 101 40-136 U/L Troponin I < 0.028 <0.028 NG/ML Total Protein 7.7 6.4-8.2 GM/DL Albumin 4.0 3.2-4.5 GM/DL Lipase 62 8-78 U/L Beta-Hydroxybutyrate (Chem panel) 0.13 0.00-0.27 MMOL/L My Orders Orders - HARRISON GONZALEZ DO Comprehensive Metabolic Panel (05/11/22 13:20) Lipase (05/11/22 13:20) Ua Culture If Indicated (05/11/22 13:20) Beta Hydroxybutyrate (05/11/22 13:20) Cbc With Automated Diff (05/11/22 13:20) Ns Iv 1000 Ml (Sodium Chloride 0.9%) (05/11/22 13:30) Troponin I [place] (05/11/22 13:30) Ekg Tracing (05/11/22 13:30) Chest 1 View, Ap/Pa Only (05/11/22 13:30) Manual Differential (05/11/22 13:26) Urine Culture (05/11/22 13:22) Ondansetron Injection (Zofran Injectio (05/11/22 14:00) Sucralfate Tablet (Carafate Tablet) (05/11/22 14:15) Antacid Suspension (Mylanta Suspension (05/11/22 14:15) Lidocaine 2% Viscous 15 Ml (Xylocaine Vi (05/11/22 14:15) Rx-Ondansetron Po (Rx-Zofran Po) (05/11/22 14:30) Medications Given in ED Current Medications Medications Dose Ordered Sig/Caio Route Start Time Stop Time Status Last Admin Dose Admin Al Hydrox/Mg Hydrox/Simethicone 30 ml ONCE ONCE PO 05/11/22 14:15 05/11/22 14:16 DC 05/11/22 14:18 30 ML Lidocaine HCl 5 ml ONCE ONCE PO 05/11/22 14:15 05/11/22 14:16 DC 05/11/22 14:18 5 ML Ondansetron HCl 8 mg ONCE ONCE IVP 05/11/22 14:00 05/11/22 14:01 DC 05/11/22 13:54 8 MG Sucralfate 1 gm ONCE ONCE PO 05/11/22 14:15 05/11/22 14:16 DC 05/11/22 14:18 1 GM Vital Signs/I&O 05/11/22 13:14 Temp 35.9 Pulse 111 Resp 20 B/P (MAP) 153/91 (111) Pulse Ox 94 Capillary Refill : Less Than 3 Seconds Blood Pressure Mean: 111 ECG EKG : Comment Sinus rhythm with a rate of 99 bpm. Normal intervals. Left axis deviation. No ST or T wave abnormalities. No ectopy. No STEMI. Departure Communication (Admissions) Patient is hemodynamically stable. No evidence for DKA at this time. She is tolerating p.o. after IV Zofran. She was given IV fluids. She is discharged in stable condition with supportive care. Impression Primary Impression: Hyperglycemia due to diabetes mellitus Additional Impression: Vomiting Qualified Codes: R11.2 - Nausea with vomiting, unspecified Disposition: 01 HOME, SELF-CARE Condition: Stable Departure-Patient Inst. Referrals: [facility] (PCP/Family) Primary Care Physician Patient Instructions: Nausea and Vomiting, Adult (DC), High Blood Sugar, Adult ED Add. Discharge Instructions: Increase your fluids at home, rest. Continue diabetic medicines as previously prescribed. I believe you likely have a GI bug or the flu. Your blood sugars may continue to be slightly elevated over the next several days while you are sick. Follow-up with your primary doctor in the next couple days. Return to the emergency department for any severe concerns. All discharge instructions reviewed with patient and/or family. Voiced understanding. Scripts Ondansetron (Ondansetron Odt) 8 Mg Tab.rapdis 8 MG SL Q6H PRN for NAUSEA/VOMITING for 3 Days, #12 TAB Prov: HARRISON GONZALEZ DO 05/11/22 HARRISON GONZALEZ DO May 11, 2022 13:30
[2022-05-11 13:32] LABS: BASOPHILS # (AUTO) 0.1 10^3/uL (0.0-0.1); BASOPHILS % (AUTO) 1 % (0-10); EOSINOPHILS # (AUTO) 0.6 10^3/uL (0.0-0.3); EOSINOPHILS % (AUTO) 4 % (0-10); HEMATOCRIT 48 % (35-52); HEMOGLOBIN 16.2 g/dL (11.5-16.0); LYMPHOCYTES # (AUTO) 3.9 10^3/uL (1.0-4.0); LYMPHOCYTES % (AUTO) 27 % (12-44); MEAN CORPUSCULAR HEMOGLOBIN 31 pg (25-34); MEAN CORPUSCULAR HGB CONC 34 g/dL (32-36); MEAN CORPUSCULAR VOLUME 91 fL (80-99); MEAN PLATELET VOLUME 9.5 fL (9.0-12.2); MONOCYTES # (AUTO) 1.1 10^3/uL (0.0-1.0); MONOCYTES % (AUTO) 8 % (0-12); NEUTROPHILS # (AUTO) 8.6 10^3/uL (1.8-7.8); NEUTROPHILS % (AUTO) 60 % (42-75); PLATELET COUNT 339 10^3/uL (130-400); WHITE BLOOD COUNT 14.4 10^3/uL (4.3-11.0)
[2022-05-11 13:35] LABS: BACTERIA,URINE NEGATIVE /HPF; WBC,URINE RARE /HPF
[2022-05-11 13:36] LABS: YEAST,URINE FEW /HPF
[2022-05-11 13:44] LABS: POTASSIUM 4.1 MMOL/L (3.6-5.0)
[2022-05-11 13:45] LABS: CALCIUM 9.5 MG/DL (8.5-10.1)
[2022-05-11 13:46] LABS: TOTAL PROTEIN 7.7 GM/DL (6.4-8.2)
[2022-05-11 13:48] LABS: BILIRUBIN,TOTAL 0.3 MG/DL (0.1-1.0)
[2022-05-11 13:50] LABS: CREATININE SERUM 1.01 MG/DL (0.60-1.30)
--- NOTE | 2022-05-11 13:53 | Diagnostic Imaging Report ---
INDICATION: Hyperglycemia, nausea, hypertension findings heart FINDINGS: The heart size and its configuration normal. There is no vascular congestion, failure, effusion or pneumothorax. IMPRESSION: No acute appearing abnormality. Dictated by: Dictated on workstation # [id number]
[2022-05-11] MEDS ORDERED: ONDANSETRON 4 MG/2 ML (SDV) Z0FRAN IVP ONE (14:00)
[2022-05-11 14:09] LABS: BAND NEUTROPHILS 0 %; BASOPHILS % (MANUAL) 0 %; EOSINOPHILS % (MANUAL) 3 %; LYMPHOCYTES % (MANUAL) 31 %; MONOCYTES % (MANUAL) 5 %; NEUTROPHILS % (MANUAL) 61 %; RBC MORPH NORMAL
[2022-05-11] MEDS ORDERED: LIDOCAINE 2% VISCOUS 15 ML UDC PO ONE (14:15)
[2022-05-11] MEDS ORDERED: SUCRALFATE 1 GM (CARAFATE) TAB PO ONE (14:15)
[2022-05-11] MEDS ORDERED: ANTACID SUSP 30 ML UDC (MYLANTA) PO ONE (14:15)
[2022-05-11] MEDS ORDERED: ONDA8TAB13 SL (14:21)
[2022-05-11] MEDS ORDERED: RX-ONDANSETRON 4 MG ODT (ZOFRAN) PPK #4 PO ONE (14:30)
[2022-05-11 14:38] VITALS: BP 142/83
== END 2022-05-11 14:38 | disposition home or self-care (01) ==
LOC: EDUNIT# 13:08 → ER 13:10
DX: E11.65 Type 2 diabetes mellitus with hyperglycemia (principal); F17.210 Nicotine dependence, cigarettes, uncomplicated; Z28.310 Unvaccinated for COVID-19
CPT/HCPCS: 36415; 71045; 80053; 81000; 82010; 82947; 83690; 84484; 85007; 85027; 87088; 93005